=== PATIENT | male | born 1950 | race Caucasian/White ===

== ENCOUNTER → 2018-07-07 | Outpatient (CLI) | payer OTHER ==
[~2018-07-07] MED LIST: ALDACTONE25 MG PO; AUGMENTIN 875875 M1 PO; CARDURA1 MG PO; CARVEDILOL12.5 MG PO; CLARITIN10 MG PO; COUMADIN 10MG T10 M1 PO; COUMADIN 5 MG TA5 M1 PO; COUMADIN7.5 MG; COUMADIN7.5 MG PO; CRESTOR20 MG PO; DIGITEK125 MC1 PO; DIGOXIN250 MCG PO; DOXAZOSIN MESYLA2 MG PO; DOXYCYCLINE 10100 MG PO; FLAGYL500 MG PO; FLONASE 0.05%50 MCG NS; FLOVENT HFA 2220 MC1 IH; LANTUSSOLASTAR SQ; LASIX 40 MG TAB40 M2 PO; LOPRESSOR 50 MG50 M1 PO; LOPRESSOR PO; LOPRESSOR50 PO; LOTENSIN20 MG PO; LOTREL 5-20 MG1 EACH PO; MEDROL DOSPAK21 TA1 PO; MEDROLDOSEPACK PO; NORFLEX100 MG PO; NOVOLOG100 UNIT/1 SUBQ; ONE DAILY FOR1 EACH PO; PROVENTIL17 G1 IH; TRICOR145 MG PO; VICODIN ES TAB1 EACH PO
== END ==
LOC: M.RAD 10:11
DX: R05 Cough (principal); M47.814 Spondylosis without myelopathy or radiculopathy, thoracic region; Z88.8 Allergy status to other drugs, medicaments and biological substances

== ENCOUNTER 2018-07-10 10:58 | Inpatient (IN) | payer OTHER ==
[~2018-07-10] VITALS: Ht 180.3 cm; Wt 142.4 kg
[2018-07-10] VITALS (14 sets, daily range): BP systolic 100–173; BP diastolic 59–139
[2018-07-10 11:18] LABS: POC CA IONIZED 4.5 mg/dL (4.5-5.3); POC CREATININE 1.8 mg/dL (0.6-1.3); POC HEMOGLOBIN 12.2 g/dL (12.0-17.0); POC POTASSIUM 5.7 mmol/L (3.5-4.9)
[2018-07-10 11:19] LABS: HEMATOCRIT 35.6 % (42.0-52.0); HEMOGLOBIN 11.2 gm/dL (14.0-18.0); MCH 30.2 pg (26.0-34.0); MCHC 31.4 g/dL (28.0-37.0); MCV 96.4 fL (80.0-100.0); MPV 9.4 fl. (7.2-11.1); NUCLEATED RBCS 1 /100WBC; PLATELET COUNT* 157 thou/uL (150-400); RDW-CV 14.8 % (10.5-14.5)
[2018-07-10 11:32] LABS: WBC 79.7 thou/uL (4.0-11.0)
[2018-07-10 11:39] LABS: CALCIUM 8.9 mg/dL (8.5-10.1); CREATININE 2.1 mg/dL (0.6-1.3); MAGNESIUM 1.9 mg/dL (1.8-2.4); TOTAL PROTEIN 7.9 g/dL (6.4-8.2)
--- NOTE | 2018-07-10 11:45 | NUR ---
DR BROWN REVIEWED FIRST SET LABS DRAWN. ALL LABS REPEATED PER DR. BROWN.
[2018-07-10 11:51] LABS: POTASSIUM 5.5 mmol/L (3.5-5.1)
[2018-07-10 11:58] LABS: HEMATOCRIT 34.3 % (42.0-52.0); HEMOGLOBIN 10.9 gm/dL (14.0-18.0); MCH 30.3 pg (26.0-34.0); MCHC 31.6 g/dL (28.0-37.0); MCV 95.8 fL (80.0-100.0); MPV 8.5 fl. (7.2-11.1); NUCLEATED RBCS 0 /100WBC; PLATELET COUNT* 123 thou/uL (150-400); RBC 3.58 mil/uL (4.50-6.00); RDW-CV 14.7 % (10.5-14.5)
[2018-07-10 11:59] LABS: BE -5.4 mmol/L (-2 to +3); PCO2 29.3 mmHg (35.0-45.0); PO2 69.5 mmHg (75.0-100.0); pH 7.404 (7.340-7.450)
[2018-07-10 12:01] LABS: WBC 70.9 thou/uL (4.0-11.0)
[2018-07-10 12:03] LABS: ABSOLUTE NEUTROPHILS 8.8 thou/uL (1.6-8.1); MONOCYTES 1.4 %; POLYS 12.4 %
[2018-07-10 12:06] LABS: ABSOLUTE LYMPHOCYTES 73.3 thou/uL (0.8-5.3); ABSOLUTE NEUTROPHILS 6.4 thou/uL (1.6-8.1)
[2018-07-10 12:09] LABS: OVALOCYTES 1+
[2018-07-10 12:10] LABS: MACROCYTES 1+
[2018-07-10 12:11] LABS: SCHISTOCYTES Occasional
[2018-07-10 12:22] LABS: ATYPICAL LYMPHS 87 %
[2018-07-10 12:41] LABS: URINE BILIRUBIN NEGATIVE (Negative); URINE BLOOD 2+ (Negative); URINE CLARITY CLEAR; URINE COLOR YELLOW; URINE GLUCOSE-RANDOM 2+ (Negative); URINE KETONES NEGATIVE (Negative); URINE LEUKOCYTES-REFLEX NEGATIVE (Negative); URINE NITRITE-REFLEX NEGATIVE (Negative); URINE PROTEIN TRACE (Negative); URINE UROBILINOGEN 0.2 E.U./dl (0.2-1.0)
[2018-07-10 12:49] LABS: AMP/METHAMP Negative (Negative); BARBITURATES Negative (Negative); BENZODIAZEPINES Negative (Negative); COCAINE Negative (Negative); METHADONE Negative (Negative); OPIATES Negative (Negative); PCP Negative (Negative); THC Negative (Negative)
[2018-07-10 12:52] LABS: APTT 40.8 Seconds (25.0-31.3); INR 2.9; PROTIME 29.6 Seconds (9.20-11.50)
[2018-07-10 12:57] LABS: HYALINE CASTS >10 Many /LPF (None Seen); MUCUS 0-3 Light strn/LPF (None Seen)
[2018-07-10 12:58] LABS: FINE GRANULAR CASTS 0-3 Few /LPF (None Seen); SQUAMOUS NONE SEEN /LPF (0-3)
[2018-07-10 12:59] LABS: AMORPHOUS URATES Few /LPF (None Seen); BACTERIA-REFLEX 1-9 Few /HPF (None Seen); URINE RBC 3-10 Few /HPF (0-2); URINE WBC-REFLEX 0-5 Rare /HPF (0-5)
[2018-07-10 13:10] LABS: INFLUENZA A ANTIGEN None Detected (None Detect); INFLUENZA B ANTIGEN None Detected (None Detect)
[2018-07-10 16:44] LABS: CALCIUM 7.3 mg/dL (8.5-10.1); CREATININE 1.7 mg/dL (0.6-1.3); PHOSPHORUS* 2.8 mg/dL (2.5-4.9); URIC ACID* 6.4 mg/dL (2.6-7.2)
[2018-07-10 16:45] LABS: POTASSIUM 4.3 mmol/L (3.5-5.1)
--- NOTE | 2018-07-10 16:45 | EKG ---
[place] [address] ELECTROCARDIOGRAM REPORT Name: CASTROJER YG Room: [address] ADM IN M.R.#: [id number] Admission: 07/10/18 Attend Phys: Alyssa Worthy Discharge: Date of : 52 Report #: [id number] THIS REPORT FOR: //name// [facility] ED Test Date: 2018-07-10 Test Time: 11:42:38 Pat Name: JER CASTRO Department: Room: [facility] Gender: M Link Assembler: ANNETTA : 1950 Requested By: Floridalma Guevara Order Number: [id number] MD: Chan Mcfarland Measurements Intervals Clark Rate: 96 P: 70 TN: 175 QRS: -11 QRSD: 125 T: 16 QT: 355 QTc: 449 Interpretive Statements Sinus rhythm Nonspecific intraventricular conduction delay Inferior infarct, old Compared to ECG 08/04/2010 08:06:25 Myocardial infarct finding still present Electronically Signed On 07-10-2018 16:45:18 CDT by Chan Mcfarland [email or web address] <ELECTRONICALLY SIGNED> By: Chan Mcfarland MD, [facility] 07/10/18 1645 1142 1142 Chan Mcfarland MD, [facility] /EPI
--- NOTE | 2018-07-10 16:56 | 2DMMODE ---
[place] [address] 2 D/M-MODE ECHOCARDIOGRAM Name: CASTROJER RONQUILLO Room: [address] IN [facility]#: [id number] Admission: 07/10/18 Attend Phys: Shantell Brown Discharge: Date of : 52 Date of Service: 07/10/18 1656 Report #: [id number] THIS REPORT FOR: //name// APPROVED REPORT Study performed: 07/10/2018 16:18:11 EXAM: Limited 2D, Doppler, and color-flow Echocardiogram Patient Location: In-Patient Room #: 003 Status: routine BSA: 2.51 HR: 86 bpm BP: 173/77 mmHg Rhythm: NSR Other Information Study Quality: Adequate Technically limited study due to body habitus, no apical views available. Indications Congestive Heart Failure Sepsis Respiratory distress 2D Dimensions IVSd: 14.02 (7-11mm) LVOT Diam: 24.28 (18-24mm) LVDd: 62.30 mm PWd: 10.86 (7-11mm) Ascending Ao: 42.09 (22-36mm) LVDs: 44.28 (25-40mm) Aortic Root: 42.63 mm Aortic Valve AoV Peak Joel.: 3.61 m/s AO Peak Gr.: 52.12 mmHg LVOT Max P.09 mmHg AO Mean Gr.: 29.35 mmHg LVOT Mean P.17 mmHg LVOT Max V: 1.01 m/s AO V2 VTI: 64.52 cm LVOT Mean V: 0.68 m/s ERIN (VTI): 1.53 cm2 LVOT V1 VTI: 21.36 cm Pulmonary Valve PV Peak Joel.: 1.39 m/s PV Peak Gr.: 7.77 mmHg Left Ventricle The left ventricle is normal size. There is global [place] [address] 2 D/M-MODE ECHOCARDIOGRAM Name: GLORIAJER RONQUILLO Room: [address] ADM IN .R.#: [id number] Admission: 07/10/18 Attend Phys: Shantell Brown Discharge: Date of : 52 Date of Service: 07/10/18 1656 Report #: [id number] left ventricle. Mild septal hypertrophy is present. Left ventricular systolic function is moderately decreased. The left ventricular diastolic function is normal. Right Ventricle The right ventricle is normal size. The right ventricular systolic function is normal. Atria The left atrium size is normal. The right atrium size is normal. Aortic Valve Moderate aortic valve sclerosis. No aortic regurgitation is present. Moderate aortic stenosis. Mitral Valve The mitral valve is normal in structure. There is no mitral valve regurgitation noted. No evidence of mitral valve stenosis. Tricuspid Valve Tricuspid valve is not well visualized. Unable to assess PA pressure. Trace tricuspid regurgitation. Pulmonic Valve Pulmonic valve is not well visualized. Trace pulmonic regurgitation. Great Vessels Aortic root is mildly dilated. IVC is normal in size. Pericardium There is no pericardial effusion. <Conclusion> Left ventricular systolic function is moderately decreased. Moderate aortic stenosis. <ELECTRONICALLY SIGNED> By: Chan Mcfarland MD, [facility] 07/10/18 [phone] 55 Chan Mcfarland MD, [facility] /INF
--- NOTE | 2018-07-10 18:19 | NUR ---
07/10 DAYS: New admit from ED. Moderate respiratory distress, placed on Bi-pap with improvement (RR drop from 40's to 20's). HTN, now soft b/p while resting on Bi-pap. ECHO, Renal US completed at bedside. Febrile, tylenol suppositoryx1 Neurologic, unable to follow commands, lethargic, spastic. HemOnc and Neuro consults placed. Monitoring closely at this time.
[2018-07-10 23:07] LABS: GLYCOHEMOGLOBIN (HGB A1C) 8.5 % (4.8-5.6)
[2018-07-11] VITALS (11 sets, daily range): BP systolic 100–149; BP diastolic 53–87
[2018-07-11 04:19] LABS: HEMATOCRIT 29.1 % (42.0-52.0); HEMOGLOBIN 9.3 gm/dL (14.0-18.0); MCH 30.5 pg (26.0-34.0); MCHC 32.1 g/dL (28.0-37.0); MCV 95.1 fL (80.0-100.0); MPV 8.6 fl. (7.2-11.1); RBC 3.06 mil/uL (4.50-6.00); RDW-CV 15.2 % (10.5-14.5)
[2018-07-11 04:40] LABS: WBC 64.3 thou/uL (4.0-11.0)
[2018-07-11 04:46] LABS: ALBUMIN 2.7 g/dL (3.4-5.0); CALCIUM 7.6 mg/dL (8.5-10.1); CREATININE 1.9 mg/dL (0.6-1.3); MAGNESIUM 1.9 mg/dL (1.8-2.4); POTASSIUM 4.3 mmol/L (3.5-5.1); TOTAL BILIRUBIN 0.8 mg/dL (<0.1-1.0); TOTAL PROTEIN 5.7 g/dL (6.4-8.2)
[2018-07-11 05:16] LABS: PCO2 42.1 mmHg (35.0-45.0); pH 7.347 (7.340-7.450)
[2018-07-11 05:19] LABS: PO2 35.7 mmHg (75.0-100.0)
[2018-07-11 06:14] LABS: BE -3.9 mmol/L (-2 to +3); PCO2 38.2 mmHg (35.0-45.0); PO2 113.8 mmHg (75.0-100.0); pH 7.357 (7.340-7.450)
--- NOTE | 2018-07-11 06:42 | NUR ---
PATIENT SLEEPING THROUGH MOST OF THE NIGHT. TYLENOL X2 FOR FEVER, HYDRALAZINE FOR BP. PATIENT ON BIPAP THROUGH THE NIGHT, ABG THIS AM TRENDING TOWARDS GOAL. SEIZURE-LIKE ACTIVITY SHIVERS NOTED, KEPPRA EEG ORDERED. PATIENT STARTED RESPONDING HE WAS HAVING THE SEIZURE-LIKE ACTIVITY, NO CHANGE IN HEART RHYTHM, LET PROVIDER KNOW HE MIGHT JUST BE SHIVERING. ORDERS STAND. PATIENT LETHARGIC, UNABLE TO HAVE A CONVERSATION AT THE BEGINNING OF SHIFT. PATIENT ALERT AND ORIENTED X4 THIS AM, TEMP DOWN TO 99.9F. 1000 CC UOP. INCLUSION SPECIAL EDUCATOR ASKS FOR NAME OF ONCOLOGIST, CONTACTED. ONCOLOGIST IS CESAR FREEDMAN WITH [employer], PHONE NUMBER [phone]. CALL LIGHT WITHIN REACH. Q2 TURNS FOR SKIN INTEGRITY.
--- NOTE | 2018-07-11 18:19 | NUR ---
PATIENT SHOWS PROGRESSION THROUGH DURATION OF SHIFT. PATIENT REMOVED FROM BIPAP AND IS NOW ON 2L O2 NASAL CANNULA MAINTAINS SATURATION. PATIENT UP TO CHAIR TODAY, TOLERATED WELL. PATIENT ON CARB CONTROL DIET, POOR APPETITE. PATIENT IS CURRENTLY IN BED, WHEELS LOCKED AND BED IN LOW POSITION FOR SAFETY. CALL LIGHT IS IN REACH.
--- NOTE | 2018-07-12 04:17 | CON ---
[address] [address] CONSULTATION Name: GLORIAJER RONQUILLO Room: [address] ADM IN M.R.#: [id number] Admission: 07/10/18 Attend Phys: Alyssa Worthy Discharge: Date of : 52 Report #: [id number] THIS REPORT FOR: //name// CC: Chan Brown HISTORY OF PRESENT ILLNESS: A 67-year-old white man admitted through the emergency room with a history of confusion, recent episode of influenza and uncontrolled diabetes mellitus. The patient in the ICU, on BiPAP. He is arousable. He is not even able to tell me why he is here. Upon further questioning, he tells me he had the flu. Nurse confirms the patient may have positive influenza test at physician's office and here is the test is negative. PAST MEDICAL HISTORY: Coronary artery bypass grafting years ago, diabetes mellitus. Chronic lymphocytic leukemia, apparently not on treatment. Hypertension. He has history of blood clots. SOCIAL HISTORY: See H and P. FAMILY HISTORY: See H and P. REVIEW OF SYSTEMS: Unable to obtain. MEDICATIONS: The patient is currently on treatment with levetiracetam 500 mg IV b.i.d., Atrovent and albuterol inhalation treatment every 4 hours, hydralazine 20 mg IV p.r.n., every 4 hours, labetalol 20 mg q. 4h p.r.n. hypertension, Zosyn 3.375 grams IV every 12 hours, insulin lispro sliding scale, p.r.n. acetaminophen, p.r.n. glucose, Glucagon, normal saline intravenously. PHYSICAL EXAMINATION: GENERAL: Obese man, not toxic looking, unable to give clear history, febrile. VITAL SIGNS: On admission, temperature 103.6, slowly down to 102.2, now 100.9, pulse 65, respirations 22, BP 108/57, height 5 feet 11 inches, weight 300 pounds, O2 saturation 99% on FiO2 40% BiPAP. HEENT: Pupils reactive, question left eye cataract surgery in the past, but he does not confirm this. Mouth: No thrush. NECK: Supple. LUNGS: Decreased breath sounds, few rhonchi at left base posteriorly. HEART: S1, S2. No gallop or murmur. Sternal surgical scars of previous CABG. ABDOMEN: Revealed fatty hyperplasia of both lower abdominal quadrants from insulin injections. No evidence of hernia. ABDOMEN: Soft, no masses or megaly. PELVIC AND RECTAL: Deferred. EXTREMITIES: Stasis dermatitis, hyperpigmentation. NEUROLOGIC: Grossly within normal limits. LABORATORY DATA: Revealed hyperkalemia of 5.7. Repeated, [place] [address] CONSULTATION Name: JER CASTRO Room: [address] IN .R.#: [id number] Admission: 07/10/18 Attend Phys: Alyssa Worthy Discharge: Date of : 52 Report #: [id number] down to 4.3. BUN 33, creatinine 2.1, down to 1.7 after hydration. Glucose 321, SGOT normal, calcium low at 7.3 mg/dL, possibly reflecting hypoalbuminemia, admission albumin 4 g/dL. Lactic acid 2.6 and down to 1.2 after fluids. NT-proBNP 1308, hemoglobin A1c 8.5%, revealing uncontrolled diabetes mellitus. The toxicology screen negative. Influenza A and B test negative. WBC 70,900 with 86% lymphocytes, compatible with chronic lymphocytic leukemia, hemoglobin 10.9, platelets decreased at 123,000. The upper respiratory virus panel is pending at the time of this dictation. The urinalysis revealed trace protein, 2+ blood. The microscopic exam revealed microscopic hematuria, bacteriuria and some mucus. The arterial blood gases reveal pH 7.40, pCO2 29.3, which is low, pO2 69, also low and bicarbonate low at 17.9, representing metabolic acidosis with respiratory alkalosis - compensated. The urine for Streptococcus pneumoniae and Legionella antigen is pending. Blood cultures negative. RADIOLOGY EVALUATION: CT head without contrast revealed chronic microvascular disease and maxillary sinusitis that appears chronic. Chest x-ray revealed left basilar pulmonary infiltrate, effusion. Ultrasound venous legs negative for DVT. ASSESSMENT: 1. Febrile illness, possible secondary to left lower lobe pneumonia. 2. Immunosuppressed host. 3. Chronic lymphocytic leukemia. 4. Uncontrolled diabetes mellitus. 5. Chronic kidney disease, improving. 6. History of coronary artery bypass grafting. SUGGESTIONS: Recommend obtaining MRSA screen, ESR and CRP. At Zyvox 600 mg IV every 12 hours. Continue Zosyn. Streamline antibiotics once microbiology sheds some light into what might be causing his pneumonia. Dr. Brown, thank you for requesting my suggestion. <ELECTRONICALLY SIGNED> By: Ad Aponte MD 07/12/18 0417 0436 [id number] Aponte MD /nt
--- NOTE | 2018-07-12 05:54 | NUR ---
PATIENT TRANSFERED TO ROOM 305 ON BED ACCOMPANIED BY GUSTAVO LAW AT THIS TIME. REPORT GIVEN TO GUSTAVO MORALEZ FOR CONTINUED CARE. VITALS WNL, PATIENT ALERT AND ORIENTED X3. BELONGINGS WITH PATIENT. NO CONCERNS/COMPLAINTS AT THIS TIME.
[2018-07-12 06:20] VITALS: BP 134/66
--- NOTE | 2018-07-12 07:54 | NUR ---
PT TRANSFERED TO ROOM 307, REPORT RECIEVED FROM KAT RN IN ICU. PT ORIENTED TO ROOM, CALL LIGHT SHOWN, PT STATED UNDERSTANDING. ASSESSMENT FROM PAINT TINTER REVIEWED, I CONCUR WITH HER DOCUMENTATION. IV'S PATENT. TELE MONITOR IN PLACE READING SR- A-FIB. WILL CONTINUE WITH PLAN OF CARE.
[2018-07-12 08:10] VITALS: BP 148/72
--- NOTE | 2018-07-12 11:18 | CON ---
[address] [address] CONSULTATION Name: GLORIAJER SARKARY Room: [address] IN M.R.#: [id number] Admission: 07/10/18 Attend Phys: Alyssa Worthy Discharge: Date of : 52 Report #: [id number] THIS REPORT FOR: //name// CC: Chan Brown NEUROLOGY CONSULTATION: HISTORY OF PRESENT ILLNESS: The patient is a 67-year-old male who was brought to the hospital for altered mental status. The patient tells me that he gave himself too much insulin. He states that he just over shot it. When he woke up at 7:30 the morning of admission, his blood sugar was 60. He ate a piece of birthday cake, by 8:30 in the morning when EMS arrived, he was in an altered state and his blood sugar was 320. The Emergency Room was able to contact Dr. Hernandez's nurse, he had been seen in the office 2 days prior and was completely normal. Apparently, the patient also tested positive for influenza last weekend and had a negative chest x-ray 2 days ago. This morning, the patient is able to carry on a conversation, although he is tired. He states he has never had a seizure before and was mostly unaware of the events that occurred yesterday. I spoke with his nurse and she states that he has had some twitching of his extremities, but nothing that would be considered a seizure. The day of admission, the patient had one event, which was concerning for seizure and then had another event of tremulousness of the extremities, which was not consistent with a seizure. PAST MEDICAL HISTORY: Hypertension, hyperlipidemia, myocardial infarction x 2, coronary artery disease, diabetes mellitus. PAST SURGICAL HISTORY: Appendectomy, coronary artery bypass graft x 6. MEDICATIONS AT HOME: Metoprolol 50 mg b.i.d., doxazosin 2 mg b.i.d., Crestor 20 mg at bedtime, NovoLog insulin, Lantus 60 units at bedtime, Lotensin 20 mg b.i.d., warfarin 10 mg 6 times a week, spironolactone 25 mg daily. ALLERGIES: NIFEDIPINE. PHYSICAL EXAMINATION: VITAL SIGNS: Temperature 37.7, pulse rate 63, respiratory rate 26, blood pressure 119/65, bedside pulse oximetry 100% on 4 liters. LABORATORY DATA: Hematology: White blood cell count 64.3, hemoglobin 9.3, hematocrit 29.1, MCV 95.1, platelet count 101,000. INR 2.9. Urinalysis, trace protein, 2+ blood, 2+ glucose. Chemistry: Sodium 143, potassium 4.3, chloride 111, carbon dioxide 22, BUN 35, creatinine 1.9, GFR 26. Hemoglobin A1c 8.5. Lactic acid 1.2, uric acid 6.4, calcium 7.6, phosphorus 2.8, magnesium 1.9. Bilirubin 0.8, AST 40, ALT 14, alkaline phosphatase 66. Serology: [place] [address] CONSULTATION Name: GLORIAJER YG Room: [address] IN [facility]#: [id number] Admission: 07/10/18 Attend Phys: Alyssa Worthy Discharge: Date of : 52 Report #: [id number] screen negative. IMAGING: CT scan of the head demonstrates atrophy and small vessel ischemic disease. NEUROLOGIC: Cranial nerves 2-12 are grossly intact. Motor exam demonstrates symmetrical strength in all 4 extremities with tone and bulk normal. Reflexes are trace. Plantar responses are flexor. Coordination reveals intact [id number]. Gait was not tested. IMPRESSION: This patient has had altered mental status, most likely secondary to hypoglycemia and then hyperglycemia. He had an episode of jerking of the extremities, which was concerning for seizure. However, he has also had other episodes of jerking of the extremities and has been awake. He is on Keppra 500 mg twice a day; however, I am going to discontinue the medication. The electroencephalogram shows generalized slowing, which is consistent with his mental status at this moment. I suspect that he will continue to improve with regard to his mentation over time. I thank you for your kind referral of the patient and will continue to follow him with you. <ELECTRONICALLY SIGNED> By: Linda Hatch DO 07/12/18 1118 [id number] Hatch DO /nt
--- NOTE | 2018-07-12 11:18 | EEG ---
[address] [address] EEG STUDY REPORT Name: JER CASTRO Room: [address] IN M.R.#: [id number] Admission: 07/10/18 Attend Phys: Alyssa Worthy Discharge: Date of : 52 Report #: [id number] THIS REPORT FOR: //name// CC: Chan Brown HISTORY: The patient is a 67-year-old male with several episodes of jerking of the extremities. An EEG is requested for further evaluation. DESCRIPTION: Using the 10-20 electrode system, a portable EEG was performed at the bedside. A moderate amplitude 5-6 Hz rhythm is seen throughout the recording. At times, low amplitude 20-25 cycles per second activity is seen over the frontocentral head regions. Photic stimulation was not activating. No focal abnormalities or epileptiform discharges were noted. IMPRESSION: This is an abnormal adult awake record consistent with moderate diffuse cerebral dysfunction. This is a nonspecific finding. There is no evidence of focal abnormality or epileptiform activity. <ELECTRONICALLY SIGNED> By: Linda Hatch DO 07/12/18 1118 1124 [id number] Hatch DO /nt
[2018-07-12 12:00] VITALS: BP 176/55
[2018-07-12 15:00] VITALS: BP 113/70
[2018-07-12 15:30] LABS: HEMOGLOBIN 9.4 gm/dL (14.0-18.0); MCH 30.9 pg (26.0-34.0); MCHC 31.5 g/dL (28.0-37.0); MCV 98.1 fL (80.0-100.0); NUCLEATED RBCS 0 /100WBC; PLATELET COUNT* 112 thou/uL (150-400); RBC 3.06 mil/uL (4.50-6.00); RDW-CV 15.8 % (10.5-14.5)
[2018-07-12 15:38] LABS: ALBUMIN 2.8 g/dL (3.4-5.0); CREATININE 1.9 mg/dL (0.6-1.3); MAGNESIUM 2.2 mg/dL (1.8-2.4); POTASSIUM 4.6 mmol/L (3.5-5.1); TOTAL BILIRUBIN 0.4 mg/dL (<0.1-1.0); TOTAL PROTEIN 5.5 g/dL (6.4-8.2)
[2018-07-12 16:34] LABS: ABSOLUTE LYMPHOCYTES 59.6 thou/uL (0.8-5.3); ABSOLUTE MONOCYTES 1.4 thou/uL (0.0-1.2); ABSOLUTE NEUTROPHILS 9.9 thou/uL (1.6-8.1)
[2018-07-12 16:35] LABS: ANISOCYTOSIS Occasional; PLATELET ESTIMATE DECREASED
[2018-07-12 16:36] LABS: BURR CELLS 1+
--- NOTE | 2018-07-12 17:07 | NUR ---
PATIENT CURRIE DC'D THIS AM, VOIDING WITHOUT DIFFICULTY. UP TO CHAIR ALL AFTERNOON. AMBULATING WITH ASSISTANCE AROUND ROOM WITHOUT DIFFICULTY. INSULIN GIVEN WITH MEALS WHEN REQUIRED. NO COMPLAINTS OF PAIN. DR. RUSSELL NOTIFIED OF CRITICAL WBC THIS AFTERNOON. SCHED IV ABX REMAIN.
[2018-07-12 19:40] VITALS: BP 151/71
[2018-07-13 00:54] VITALS: BP 134/72
[2018-07-13 04:33] VITALS: BP 122/76
--- NOTE | 2018-07-13 05:20 | NUR ---
PT SLEPT ON AND OFF THIS SHIFT. ASSESSMENT DOCUMENTED. MEDS GIVEN PER E-JUN. NO REPORTS OF PAIN THIS SHIFT. PT DID REPORT NAUSEA, PT STATED THAT THE FOOD HE GOT FOR DINNER WAS "ROTTEN". DR NOTIFIED, ORDERS RECIEVED, ZOFRAN GIVEN WITH RELIEF. IV'S PATENT. WILL CONTINUE WITH PLAN OF CARE.
[2018-07-13 08:50] VITALS: BP 161/62
[2018-07-13 11:57] VITALS: BP 140/75
--- NOTE | 2018-07-13 13:42 | NUR ---
Nutrition: Pt seen for high BMI. CHO controlled diet, eating well. He did stated he doesn't want tea or coffee ever - RD put in that order. BG 187, alb 2.8, prealb 14.7. He stated his BG runs 120-130 at home. Hx DM, HTN, PNA. Wt: 314#. Pt denied any other needs. Appears at mild nutrition risk.
[2018-07-13 16:20] VITALS: BP 117/67
--- NOTE | 2018-07-13 16:32 | NUR ---
SW met with pt to complete initial assessment, introduce self, and SW role. Pt alert, oriented. Pt lives at home with his . Pt said he felt more steady on his feet today and took a shower. Pt does not anticipate any dc needs at this time. SW to continue to follow.
--- NOTE | 2018-07-13 18:59 | NUR ---
PATIENT HAS BEEN A/O X 4 THIS SHIFT. CONTINUES ON GAS METER INSTALLER HELPER, TRACING NSR. UP IN HALLS THIS SHIFT AND IN ROOM. PATIENT CONTINUES ON IV ANTIBIOTICS. BLOOD SUGARS CHARTED. REMAINS ON RA. HOPEFUL TO BE DISCHARGED SOON. HOURLY ROUNDING COMPLETED. CALL LIGHT WITHIN REACH. WILL CONTINUE WITH PLAN OF CARE.
[2018-07-13 20:30] VITALS: BP 141/57
[2018-07-14 00:30] VITALS: BP 139/71
[2018-07-14 03:52] VITALS: BP 159/64
[2018-07-14 04:36] LABS: HEMATOCRIT 30.9 % (42.0-52.0); HEMOGLOBIN 9.8 gm/dL (14.0-18.0); MCH 30.6 pg (26.0-34.0); MCHC 31.9 g/dL (28.0-37.0); MCV 95.9 fL (80.0-100.0); MPV 8.3 fl. (7.2-11.1); RBC 3.22 mil/uL (4.50-6.00)
[2018-07-14 04:49] LABS: CALCIUM 8.6 mg/dL (8.5-10.1); MAGNESIUM 1.8 mg/dL (1.8-2.4); POTASSIUM 4.3 mmol/L (3.5-5.1)
--- NOTE | 2018-07-14 06:12 | NUR ---
PATIENT SLEPT PART OF THE NIGHT. IV REMAINS SALINE LOCKED. IV ABTIBIOTICS WERE GIVEN ORDERED. PATIENT HAD NO COMPLAINTS OF PAIN. PATIENT IS HOPING TO GO HOME TODAY. WILL CONTINUE TO MONITOR.
--- NOTE | 2018-07-14 06:59 | CON ---
[address] [address] CONSULTATION Name: CASTROJER RONQUILLO Room: [address] IN .R.#: [id number] Admission: 07/10/18 Attend Phys: Alyssa Worthy Discharge: Date of : 52 Report #: [id number] THIS REPORT FOR: //name// CC: Chan Brown DATE OF SERVICE: 07/12/2018 REASON FOR CONSULTATION: CLL REQUESTING PHYSICIAN: Dr. Brown. HISTORY OF PRESENT ILLNESS: The patient is a 67-year-old man with history of chronic lymphocytic leukemia, well known to my partner, Dr. Higuera. He has not required treatment so far for CLL. He was admitted to the hospital with altered mental status. He was initially admitted to Intensive Care Unit with hypoxia, possible pneumonia. He ____ and he was transferred to the telemetry floor. Oncology consultation is requested because of elevated white count. He ____ in his bed today. He is alert, oriented. He is doing well. He does not have complaints of any fevers or chills. He has not lost any weight. He has not been having profuse night sweats. No bleeding. PAST MEDICAL HISTORY: Significant for diabetes mellitus, coronary artery disease, hypertension, CLL. SOCIAL HISTORY: Does not smoke. REVIEW OF SYSTEMS: See above. PHYSICAL EXAMINATION: GENERAL: Reveals overweight man, not in acute distress. VITAL SIGNS: Blood pressure 176/55, heart rate is 71, temperature 98.9, respirations 18. HEENT: Does not reveal thrush. NECK: Supple. There is no cervical lymphadenopathy. HEART: Normal S1, S2. LUNGS: Clear. ABDOMEN: Obese. SKIN: No rash. MENTAL STATUS: Alert, oriented x 3. LABORATORY DATA: White count 64.3, hemoglobin 9.3, platelets 101. Absolute neutrophil count checked on 07/10/2018 was 73.3 with total white count of 79.7. ASSESSMENT AND PLAN: CLL. No indications for any treatment for now. I do not think ____ the patient's condition, continue [place] [address] CONSULTATION Name: JER CASTRO Room: [address] IN [facility]#: [id number] Admission: 07/10/18 Attend Phys: Alyssa Worthy Discharge: Date of : 52 Report #: [id number] infection ____ treatment. Follow up with Dr. Higuera in 1 month. Thank you very much for allowing me to participate in the care of this patient. <ELECTRONICALLY SIGNED> By: Rip Sinclair MD 07/14/18 0659 1337 [id number] Sinclair MD /nt
[2018-07-14 07:45] VITALS: BP 162/88
[2018-07-14 12:04] VITALS: BP 162/88
[2018-07-14] MEDS ORDERED: LEVAQUIN 750 M750 MG PO (12:17)
[2018-07-14 13:56] VITALS: BP 167/82
[2018-07-14] MEDS ORDERED: LEVAQUIN 500 M500 M2 PO (14:06)
--- NOTE | 2018-07-14 14:51 | NUR ---
PATIENT'S IV AND OFFICER CAPTAIN REMOVED. PATIENT GIVEN DISHCARGE INSTRUCTIONS AND PRESCRIPTIONS. PATIENT VERBALIZED UNDERSTANDING IN REGARDS TO FOLLOW UP APPOINTMENTS AND NEW MEDICATIONS. PATIENT DISCHARGED WITH NURSING STAFF AND AMBULATED OFF UNIT WITH PATIENT'S BROTHER.
[2018-07-15 06:05] LABS: ADENOVIRUS Negative (Negative); INFLUENZA A Negative (Negative); INFLUENZA B Negative (Negative); METAPNEUMOVIRUS Negative (Negative); PARAINFLUENZA 1 Negative (Negative); PARAINFLUENZA 2 Negative (Negative); PARAINFLUENZA 3 Negative (Negative); RHINOVIRUS Negative (Negative); RSV A Negative (Negative); RSV B Negative (Negative)
== END 2018-07-14 14:40 | disposition home or self-care (01) | DRG 871 ==
LOC: M.ERS 10:58 → M.3W 12:12 → M.TBA-ER 12:12 → M.ICU 14:30 → M.3W 07-12 05:58
PROVIDERS: Internal Medicine; Personal Emergency Response Attendant; ADMIT Internal Medicine
PROC: 5A09357 Assistance with Respiratory Ventilation, Less than 24 Consecutive Hours, Continuous Positive Airway Pressure (ICD-10-PCS; principal; 2018-07-10)
DX: A41.9 Sepsis, unspecified organism (principal); J15.6 Pneumonia due to other Gram-negative bacteria; G93.41 Metabolic encephalopathy; N17.0 Acute kidney failure with tubular necrosis; J15.9 Unspecified bacterial pneumonia; C91.10 Chronic lymphocytic leukemia of B-cell type not having achieved remission; D68.59 Other primary thrombophilia; I12.9 Hypertensive chronic kidney disease with stage 1 through stage 4 chronic kidney disease, or unspecified chronic kidney disease; N18.3 Chronic kidney disease, stage 3 (moderate); E78.00 Pure hypercholesterolemia, unspecified; E10.65 Type 1 diabetes mellitus with hyperglycemia; E78.5 Hyperlipidemia, unspecified; E10.22 Type 1 diabetes mellitus with diabetic chronic kidney disease; I25.10 Atherosclerotic heart disease of native coronary artery without angina pectoris; G93.89 Other specified disorders of brain; I35.0 Nonrheumatic aortic (valve) stenosis; I25.2 Old myocardial infarction; Z95.1 Presence of aortocoronary bypass graft; Z95.5 Presence of coronary angioplasty implant and graft; Z83.3 Family history of diabetes mellitus; Z88.8 Allergy status to other drugs, medicaments and biological substances; Z90.49 Acquired absence of other specified parts of digestive tract; Z79.01 Long term (current) use of anticoagulants; Z79.899 Other long term (current) drug therapy

== ENCOUNTER → 2018-11-17 | Outpatient (CLI) | payer OTHER ==
[~2018-11-17] MED LIST changes: +LEVAQUIN 500 M500 M2 PO; +LEVAQUIN 750 M750 MG PO
[2018-11-17 09:38] LABS: CALCIUM 9.1 mg/dL (8.5-10.1); CREATININE 1.7 mg/dL (0.6-1.3); POTASSIUM 4.3 mmol/L (3.5-5.1)
[2018-11-17 09:50] LABS: ALBUMIN 4.1 g/dL (3.4-5.0); TOTAL BILIRUBIN 0.8 mg/dL (<0.1-1.0); TOTAL PROTEIN 6.9 g/dL (6.4-8.2)
== END ==
LOC: M.LAB 09:15 → M.CT 11:00
PROVIDERS: Internal Medicine Hematology & Oncology
DX: J84.10 Pulmonary fibrosis, unspecified (principal); M25.70 Osteophyte, unspecified joint; M47.814 Spondylosis without myelopathy or radiculopathy, thoracic region; E01.0 Iodine-deficiency related diffuse (endemic) goiter; R60.9 Edema, unspecified; C91.90 Lymphoid leukemia, unspecified not having achieved remission

== ENCOUNTER → 2018-11-25 | Outpatient (CLI) | payer OTHER ==
[~2018-11-25] VITALS: Ht 190.5 cm; Wt 132.4 kg
[2018-11-25 08:58] VITALS: BP 131/68
[2018-11-25 09:06] LABS: HEMATOCRIT 34.6 % (42.0-52.0); HEMOGLOBIN 11.2 gm/dL (14.0-18.0); MCHC 32.3 g/dL (28.0-37.0); MCV 96.2 fL (80.0-100.0); MPV 8.1 fl. (7.2-11.1); NUCLEATED RBCS 0 /100WBC; PLATELET COUNT* 107 thou/uL (150-400); RDW-CV 15.2 % (10.5-14.5)
[2018-11-25 09:08] LABS: WBC 86.7 thou/uL (4.0-11.0)
[2018-11-25 09:12] LABS: CREATININE 1.7 mg/dL (0.6-1.3)
[2018-11-25 09:16] LABS: INR 1.1; PROTIME 11.6 Seconds (9.20-11.50)
[2018-11-25 09:25] LABS: ABSOLUTE LYMPHOCYTES 84.1 thou/uL (0.8-5.3); ABSOLUTE NEUTROPHILS 2.6 thou/uL (1.6-8.1); ATYPICAL LYMPHS 5 %
[2018-11-25 09:26] LABS: PLATELET ESTIMATE DECREASED
[2018-11-25 11:00] VITALS: BP 165/75
--- NOTE | 2018-12-02 21:05 | PATH ---
[address] [address] PATHOLOGY RPT PROCEDURE Name: GLORIABALJIT RONQUILLO Room: [facility].#: [id number] Admission: 11/25/18 Date of : 52 Discharge: Report #: [id number] Path Case #: [id number] [facility] Accession Number: [id number] . 01 Material submitted: . PART A: bone - BONE MARROW BIOPSY PART B: bone - BONE MARROW CLOT PART C: bone - BONE MARROW ASPIRATES PART D: bone - PERIPHERAL SMEARS PART E: bone - BONE MARROW FLOW . 01 Clinical history: . 58-year-old man with CLL. . 02 Diagnosis: Bone marrow aspirate, biopsy, cell clot and peripheral blood: - PERIPHERAL BLOOD WITH CHRONIC LYMPHOCYTIC LEUKEMIA/SMALL LYMPHOCYTIC LYMPHOMA. - HYPERCELLULAR BONE MARROW WITH DIFFUSE INVOLVEMENT BY CHRONIC LYMPHOCYTIC LEUKEMIA/SMALL LYMPHOCYTIC LYMPHOMA (APPROXIMATELY 90% INVOLVEMENT BY IMMUNOHISTOCHEMICAL STAINING). . . Surgical Pathology Cancer Case Summary Protocol posting date: May 2018 . BONE MARROW: Final Integrated Diagnosis . Final Integrated Diagnosis . Mature B-cell neoplasms ___ Chronic lymphocytic leukemia/small lymphocytic lymphoma . Surgical Pathology Cancer Case Summary . Protocol posting date: May 2018 . BONE MARROW: Histologic Assessment . Clinical . Clinical context ___ Other: Unknown . Procedure ___ Bone marrow aspiration ___ Bone marrow aspirate clot ___ Bone marrow core biopsy ___ Bone marrow core touch preparation (imprint) [place] [address] PATHOLOGY RPT PROCEDURE Name: BALJIT SINGH Room: [facility]#: [id number] Admission: 11/25/18 Date of : 52 Discharge: Report #: [id number] Path Case #: [id number] . Peripheral Blood Complete Blood Cell Count White blood cell count: 86.7 x103 / 5L Neutrophils: 3% Lymphocytes: 92% Other cells: 5% Cell type): Atypical lymph Hemoglobin: 11.2 g/dL Platelets: 107 x103 / 5L . Bone Marrow Morphology . Bone Marrow Cellularity: 80-90% . Bone Marrow Blasts: less than 1% . Bone Marrow Lymphocytes (report for lymphoid malignancies): 90% . Histologic Group ___ Mature B-cell neoplasm . Biomarker Studies ___ Pending . (CLW:pit; 11/27/2018) . Special studies report received from [facility], [address] [place] [address], [address], [place], [address], on case [id number], labeled with their number [id number], dated 11/26/2018. . Flow Cytometry: Hematologic Neoplasia Assessment . Clinical History CLL . Indication for Study Evaluation for chronic lymphocytic leukemia . Specimen Bone Marrow Aspirate . Viability 94% (7AAD exclusion) . Interpretation Bone Marrow Aspirate: CD5+ monotypic (clonal) B-cell population (92% of leukocytes) with a B-cell chronic lymphocytic leukemia/small lymphocytic lymphoma (CLL/SLL[place] [address] PATHOLOGY RPT PROCEDURE Name: BALJIT SINGH Room: [facility]#: [id number] Admission: 11/25/18 Date of : 52 Discharge: Report #: [id number] Path Case #: [id number] . Comments Correlation with available clinical, laboratory, and morphologic data is recommended. . Populations Analyzed Myeloid Blasts: 0.0% No significant blast population detected . Abnormal B-cells: 92% Scatter properties compatible with small to intermediate cell size, cells characterized as: CD45+, CD5+, CD10-, CD11b-, CD11c-/+, CD19+, CD20+ (dim), CD22+ (dim), CD23+, CD38-, FMC7-, HLA-DR+, sIg kappa+ . Remaining 1.8% B-cells: 0.05%, polytypic/polyclonal sIg light chain Lymphocytes: pattern T-cells: no significant abnormalities of the markers tested CD4+ T-cells: 0.8% (including 0.0% CD57+ cells) CD8+ T-cells: 0.4% (including 0.1% CD57+ cells) CD4:CD8: 1.9 NK cells: 0.5% . Neutrophilic Cells: 6% No significant abnormalities of the markers tested . Monocytic Cells: 0.3% No significant abnormalities of the markers tested . Eosinophils: 0.2% No relative increase . . Morphologic Evaluation A slide was reviewed for quality officer purposes only. . Specimen Description Total Cell Yield: 63.30 X 10 6 . Reagent(s) Used CD2, CD3, CD4, CD5, CD7, CD8, CD10, CD11b, CD11c, CD13, CD14, CD16, CD19, CD20, CD22, CD23, CD33, CD34, CD38, CD45, CD56, CD57, CD64, CD117, FMC-7, HLA-DR, kappa, lambda . at [facility]. Donell Casarez MD Hematopathologist . . Intended Use Flow cytometry is optimally used [place] [address] PATHOLOGY RPT PROCEDURE Name: GLORIABALJIT SARKARY Room: [facility]#: [id number] Admission: 11/25/18 Date of : 52 Discharge: Report #: [id number] Path Case #: [id number] abnormal populations when they are detected. Negative flow cytometry results do not exclude lymphoma or neoplasia. Possible false negative flow cytometry results may occur in, but are not limited to, the following: neoplastic cells in Hodgkin lymphoma are not typically adequately represented by routine clinical flow cytometry; neoplastic cells may be lost or inadequately represented due to degeneration, sample processing, sampling artifact, or patchy involvement; plasma cells are typically underrepresented by flow cytometry; immature cells/blasts may be underrepresented due to hemodilution; myeloproliferative disorders and low grade myelodysplasia may not have immunophenotypic abnormalities or increased blasts. Correlation with all available clinical, laboratory, and morphologic data is always necessary to assess for the possibility of false negative flow cytometry results and to establish a diagnosis. Each marker in this analysis was used to assess for potential antigenic abnormalities or to evaluate detected abnormalities. . Disclaimer(s) This test was performed at [facility]. at [address] [place] [address], [place], [address] - [employer] Supervisor: Edwin Lee MD. . [employer] is a business unit of [employer] a wholly-owned subsidiary of [employer]. . Any image or images that accompany this report are quality assurance representative images only and should not be used to render a diagnosis. . This test was developed and its performance characteristics determined by [facility]. It has not been cleared or approved by the Food and Drug Administration (FDA). The FDA has determined that such clearance or approval is not necessary. . For inquiries, the physician may contact Lab: [phone] . A complete copy of the report is on file. . Professional services performed by [facility]. at [address], [place] [address]. Technical services performed by [facility]. at [address], [place] [address]. . (BENNY: 11/27/2018) QMS/11/27/2018 . 02 Comment: Overall the bone marrow is hypercellular for the patient's age with diffuse interstitial involvement by chronic lymphocytic leukemia/[place] [address] PATHOLOGY RPT PROCEDURE Name: BALJIT SINGH Room: [facility]#: [id number] Admission: 11/25/18 Date of : 52 Discharge: Report #: [id number] Path Case #: [id number] lymphocytic lymphoma. There is approximately 90% involvement by immunohistochemical staining. Correlation with clinical history, additional laboratory data, radiographic findings, and cytogenetic/FISH/molecular studies is required. (CLW:azeem; 11/27/2018) . 02 Addendum: . Special studies report received from [facility], [address] [place] [address], [address], [place], [address], on case [id number], labeled with their number [id number], dated 11/28/2018 . Fluorescence in situ Hybridization (FISH) Report [employer] Analysis . 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 Specimen Type: Bone Marrow Indication for Study: Evaluate for CLL . INTERPRETATION: Fluorescence in situ hybridization (FISH) analysis was performed on this patient's specimen using DNA probes for CLL panel. . Two hundred interphase nuclei were examined for each probe and the signal patterns revealed the following: . 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 . The signal pattern obtained with the remaining probes did not differ significantly from the normal controls. . Deletion of the long arm of chromosome 13 is the most common genetic alteration in B-cell chronic lymphocytic leukemia (B-CLL) by FISH analysis and is seen in 50 to 60% of patients. Isolated deletion 13q14.3 is considered a favorable prognostic indicator in the absence of adverse genetic markers. . Genetic changes other than those assayed in this study cannot be ruled out on the basis of this testing. Correlation with cytogenetic, clinical and hematopathological findings is suggested for a complete interpretation of the results. Follow-up FISH analysis may be considered as a means to monitor the clinical course of the disease. . See Flow Cytometry report [id number] for further information. See Cytogenetic report [id number] for further information. See Molecular report [id number] for further [place] [address] PATHOLOGY RPT PROCEDURE Name: BALJIT SINGHY Room: [facility]#: [id number] Admission: 11/25/18 Date of : 52 Discharge: Report #: [id number] Path Case #: [id number] The following [employer] FISH analysis was performed on this patient's specimen: . Probe Detection Parameters Result ISCN Centromere 12 Detects a trisomy 12 Not Detected nuc garrison(U65Q8y6)[200] 13q14(DLEU1) Detects a deletion of 13q Detected nuc garrison(AQZR2d0,WBKQ3s6)[118/200] CAREN/11q Detects a deletion of CAREN gene Not Detected nuc garrison(ATMx2)[200] TP53/17p13 Detects a deletion of TP53 gene Not Detected nuc garrison(TP53x2)[200] CCND1/IGH - Detects a CCND1/IGH translocation Not Detected nuc garrison (CCND1, IGH)x2[200] t(11;14) . . at [facility]. De Salomon, PhD, [facility] Director of Clinical Cytogenetics . Methodology: The patient specimen is processed onto a glass slide. Fluorescent DNA probe(s) is(are) applied to the cells on the slide under conditions of denaturation followed by hybridization. Stringency washes are applied and the slide is subsequently counterstained. A minimum of 100 interphase nuclei are analyzed unless otherwise indicated above. . Disclaimer This Test was performed by [facility]. at [address] [place] [address]. [employer] is a business unit of [employer] a wholly-owned subsidiary of [employer]. . This test was developed and its performance characteristics determined by [employer]. It has not been cleared by the Food and Drug Administration. The FDA has determined that such clearance or approval is not necessary. . Any image(s) that accompany this report is/are a quality assurance representative image(s) only and should not be used to render a diagnosis. . A complete copy of the report is on file. . . Professional services performed by [facility]. at [address] [place] [address]. Technical services performed by [facility]. at [address] [place] [address] PATHOLOGY RPT PROCEDURE Name: BALJIT SINGH Room: [facility] GERALD Steele#: [id number] Admission: 11/25/18 Date of : 52 Discharge: Report #: [id number] Path Case #: [id number]. . (BENNY: 11/30/2018) QMS/11/30/2018 Addendum Electronically Signed by Acacia Arriaga MD, Pathologist Addendum #2: Special studies report received from [facility], [address] [place] [address], [address], [place], [address], on case [id number], labeled with their number [id number], dated 12/01/2018. . Immunoglobulin Heavy Chain Gene Variable Region (IgVH) Somatic Hypermutation Analysis . INTERPRETATION: IgVH Somatic Hypermutation was detected. . Indication for Study: CLL . Specimen Type: Bone Marrow . Comments: IgVH Somatic Hypermutation Analysis revealed a clonal B cell population in which the IgVH gene VH4-34 was positive for somatic hypermutation (mutated). The IgVH clone isolated is considered hypermutated when the mutation rate compared to the germline sequence is greater than 2.0%. In univariate analysis studies, unmutated VH and high CD38 expression levels predicted for shorter survival times. In multivariate analysis, unmutated VH, 17p deletion, 11q deletion, age, WBC, and LDH were identified as independent prognostic factors, indicating a complementary role of VH mutation status and genomic aberrations to predict outcome in CLL. . These results should be interpreted in the context of all clinical and laboratory findings. . See Flow Cytometry report [id number] for further information. See Cytogenetic report [id number] for further information. See FISH report [id number] for further information. . Analytical Results: Assay Type Detection Parameters Result IgVH Mutation Analysis VH1-7 Mutated, 2.4% . at [employer] Theodore, Ph.D., SMITH DABMG, DABCC, DLMcm, M(ASCP)cm, MB(ASCP)cm . Methodology: [place] [address] PATHOLOGY RPT PROCEDURE Name: BALJIT SINGH Room: [facility].#: [id number] Admission: 11/25/18 Date of : 52 Discharge: Report #: [id number] Path Case #: [id number] The Immunoglobulin Heavy Chain Gene Variable Region (IgVH) Somatic Hypermutation Analysis assay is performed using extracted patient RNA as starting material. Subsequent amplification of the IgH gene is performed by polymerase chain reaction (PCR). The PCR products are isolated and sequenced. The nucleotide sequence is compared to a consensus germline sequence database for that VH gene family. The results are reported as percentage of homology between the patient's VH sequence in comparison with the germline VH sequence using the Basic Local Alignment Search Tool (BLAST) for the immunoglobulin database at http://www.ncbi.nlm.nih.gov/igblast. . Intended Use: The IgVH gene mutation status is one of the discriminators of clinical outcome of patients with Chronic Lymphocytic Leukemia (CLL). The sensitivity of the assay is approximately 15% of the clonal B-cell in the polyclonal background. The results of this analysis are to be interpreted in the context of all clinical and laboratory findings. No therapeutic action should be taken solely based upon these results. . References: 1. A. Krvber, et al. (2002) VH mutation status, CD38 expression level, genomic aberrations, and survival in chronic lymphocytic leukemia. Blood 100(4):4189-1642. 2. Chika. Katharine et al. (1998) Chronic Lymphocytic Leukemia B Cells Express Restricted Sets of Mutated and Unmutated Antigen Receptors. J Clin Invest 102(8):3266-3112. 3. Sandra Gray et al. (1999) Unmutated IgVH genes are associated with a more aggressive form of chronic lymphocytic leukemia. Blood 94(6):8634-7833. 4. Chika. Svitlana et al. (1998) The complete nucleotide sequence of the human immunoglobulin heavy chain variable region locus. J. Exp Med 188(11):9901-3372. . Disclaimer This Test was performed by [facility] [employer]. at [address] [place] [address], [facility]. . [facility] is a business unit of [employer] a wholly-owned subsidiary of [employer]. . This test was developed and its performance characteristics determined by [employer]. It has not been cleared or approved by the Food and Drug Administration. . A complete copy of the report is on file. . Professional services performed by [facility]. at [address] [place] [address]. [place] [address] PATHOLOGY RPT PROCEDURE Name: BALJIT SINGH Room: [facility]#: [id number] Admission: 11/25/18 Date of : 52 Discharge: Report #: [id number] Path Case #: [id number] [facility] at [address], [place] [address]. (BENNY: 12/01/2018) . QMS/12/02/2018 Addendum Electronically Signed by Acacia Arriaga MD, Pathologist . 02 Electronically signed: . Acacai Arriaga MD, Pathologist NPI- [id number] . 01 Gross description: . A. The specimen is received in formalin, labeled "Baljit Singh, core" and consists of a davison-brown bone core measuring 0.5 x 0.3 x 0.2 cm which is entirely submitted in A1 following decalcification. . B. The specimen is received in formalin, labeled "Baljit Singh, clot" and consists of blood clot measuring 2.7 x 2.5 x 0.6 cm which is entirely submitted in B1. (SDY; 11/25/2018) SYU/SYU . 02 Microscopic: . CBC Data (11/25/2018): WBC 86,700 /uL, RBC 3.60, hemoglobin 11.2 g/dL, hematocrit 34.6%, MCV 96.2 fL, MCH 31.0 pg, MCHC 32.3 g/dL, RDW 15.2%, and platelet count 107,000 /uL. White blood cell differential: segs 3%, lymphs 92%, atypical lymphs 5%. . Peripheral Blood Smear: Cytomorphological examination of the Huffman's stained peripheral blood smear confirms the provided data. Red blood cells show mild normocytic anemia with no significant anisopoikilocytosis. White blood cells are markedly increased in number. They are predominantly lymphocytes that are small, round and mature appearing with condensed chromatin and scant cytoplasm. No significant large lymphoid (prolymphocyte) component is identified. Platelets are mildly decreased in number and mainly normal in morphology with rare larger platelets noted. . Aspirate Smears: Cytomorphological examination of the Huffman's stained aspirate smears shows hypercellular spicules present. The cellularity is approximately 80%. The predominant nucleated cells seen is a small, round mature appearing lymphocyte with condensed chromatin and scant cytoplasm. Lymphoid aggregates are noted. Apart from the lymphoid infiltrate, the myeloid to erythroid ratio is 1:1. Myeloid and erythroid maturation are mildly dyserythropoietic. In a 500 cell differential, there are less than 1% blasts (no Sheryl rods are seen), 4% more differentiated myeloids, 4% erythroid precursors, and 92% lymphocytes. Megakaryocytes are proportional in number and both normal [place] [address] PATHOLOGY RPT PROCEDURE Name: BALJIT SINGH Room: [facility]#: [id number] Admission: 11/25/18 Date of : 52 Discharge: Report #: [id number] Path Case #: [id number] variable sizes and nuclear abnormalities. Iron stain of the aspirate smear shows 2/4+ iron positivity with spicules present. No ringed sideroblasts are identified. . Core Biopsy and Cell Clot: The decalcified bone marrow core biopsy is small but adequate. The bone marrow is hypercellular with an overall cellularity of 80 to 90%. There is a diffuse atypical interstitial lymphoid infiltrate composed of predominantly small, round and mature appearing lymphocytes with condensed chromatin and scant cytoplasm. Background trilineage hematopoiesis is reduced. The myeloid to erythroid maturation are without significant dyspoiesis. Megakaryocytes are present and unremarkable. No markedly atypical lymphoid cells are seen. Bony trabeculae and blood vessels are unremarkable. The cell clot has rare spicules present that are similar in cellularity and differential morphology as previously described with an increase in small mature appearing lymphocytes. . Properly controlled special stains are performed. . Block A1 Iron - 1/4+ iron positivity Reticulin - 2/4+ reticulin fibrosis . Block B1 Iron - 1/4+ iron positivity with spicules present . To further quantify the neoplastic B-cell population and to identify cells in a tissue architectural context, properly controlled immunohistochemical stains are performed. . Block A1 PAX5 - Stains approximately 90% neoplastic B-cells; CD3 - Stains rare admixed T-cells; Cyclin D1 - Essentially nonreactive. . Block B1 PAX5 - Stains approximately 90% neoplastic B-cells; CD3 - Highlights rare admixed T-cells; Cyclin D1 - Essentially nonreactive. . Flow Cytometry: Flow cytometric immunophenotypic analysis was performed at [facility]. The diagnosis is "CD5 positive monotypic (clonal) B-cell population (92% of leukocytes) with a B-cell chronic lymphocytic leukemia/small lymphocytic lymphoma (CLL/SLL) immunophenotype". There are 92% abnormal B-cells that are small to intermediate in cell size and characterized as CD45 pos, CD5 pos, CD10 neg, CD11b neg, CD11c neg/pos, CD19 pos, CD20 pos (dim), CD22 pos (dim), CD23 pos, CD38 neg, FMC7 neg, HLA-DR pos and surface Ig kappa pos. The 11.18% [place] [address] PATHOLOGY RPT PROCEDURE Name: BALJIT SINGH [facility] [id number] Admission: 11/25/18 Date of : 52 Discharge: Report #: [id number] Path Case #: [id number] include 0.05% polyclonal B-cells. T-cells have a CD4/CD8 ratio of 1.9 and no aberrant T-cell antigen expression. There are 0% blasts. Please see separate flow cytometry report from [facility] ([id number]). . Cytogenetics Analysis: Cytogenetic chromosomal analysis is pending at [facility] ([id number]). . FISH analysis is pending at [facility] ([id number]). . IgVH somatic hypermutation analysis is pending at [facility] ([id number]). (CLW:azeem; 11/27/2018) . 02 Pathologist provided ICD-10: C91.10 . 02 CPT . 867644, 429137, 482494, 697821, 953097, 584050, 292018, 587542, 584256, N03635, V48538 Specimen Comment: A courtesy copy of this report has been sent to Specimen Comment: [phone], . Specimen Comment: Report sent to / DR LEZAMA Performed at: 01 [facility] [address] [id number] MD Bashir Tijerina MD Phone: [phone] Performed at: 02 [facility] [address] [id number] MD Harish Nice MD Phone: [phone]
== END | disposition home or self-care (01) ==
LOC: M.INT 08:09
PROVIDERS: Radiology Diagnostic Radiology
DX: C91.10 Chronic lymphocytic leukemia of B-cell type not having achieved remission (principal); I10 Essential (primary) hypertension; E78.00 Pure hypercholesterolemia, unspecified; I25.2 Old myocardial infarction; E10.9 Type 1 diabetes mellitus without complications; Z90.49 Acquired absence of other specified parts of digestive tract; Z79.01 Long term (current) use of anticoagulants; Z98.890 Other specified postprocedural states; Z79.899 Other long term (current) drug therapy; Z88.8 Allergy status to other drugs, medicaments and biological substances; Z79.4 Long term (current) use of insulin

== ENCOUNTER 2019-01-07 16:26 | Emergency (ER) | payer OTHER ==
[~2019-01-07] VITALS: Ht 190.5 cm; Wt 131.5 kg
[2019-01-07 17:14] LABS: HEMOGLOBIN 10.2 gm/dL (14.0-18.0); MCV 96.9 fL (80.0-100.0); MPV 9.1 fl. (7.2-11.1); RBC 3.3 mil/uL (4.50-6.00); RDW-CV 15.8 % (10.5-14.5)
[2019-01-07 17:18] LABS: WBC 118.7 thou/uL (4.0-11.0)
[2019-01-07 17:25] LABS: INR 3.9
[2019-01-07 18:23] VITALS: BP 129/78
[2019-01-08] MEDS ORDERED: COUMADIN 5 MG TA5 M1 PO (08:26)
== END 2019-01-07 18:23 | disposition home or self-care (01) ==
LOC: M.ERS 16:26
PROVIDERS: Emergency Medicine Emergency Medical Services
DX: K91.840 Postprocedural hemorrhage of a digestive system organ or structure following a digestive system procedure (principal); I10 Essential (primary) hypertension; E78.00 Pure hypercholesterolemia, unspecified; E10.9 Type 1 diabetes mellitus without complications; Z95.5 Presence of coronary angioplasty implant and graft; Z90.49 Acquired absence of other specified parts of digestive tract; Z88.8 Allergy status to other drugs, medicaments and biological substances; Z79.4 Long term (current) use of insulin

== ENCOUNTER 2019-01-08 08:16 | Emergency (ER) | payer OTHER ==
[~2019-01-08] VITALS: Ht 190.5 cm; Wt 131.5 kg
[2019-01-08] MEDS ORDERED: COUMADIN 5 MG TA5 M1 PO (08:26)
[2019-01-08 09:23] LABS: HEMATOCRIT 32.3 % (42.0-52.0); HEMOGLOBIN 10.4 gm/dL (14.0-18.0); MCH 31.2 pg (26.0-34.0); MCHC 32.4 g/dL (28.0-37.0); MCV 96.4 fL (80.0-100.0); NUCLEATED RBCS 1 /100WBC; PLATELET COUNT* 160 thou/uL (150-400); RBC 3.35 mil/uL (4.50-6.00); RDW-CV 15.5 % (10.5-14.5)
[2019-01-08 09:25] LABS: INR 4.1; PROTIME 39.9 Seconds (9.20-11.50)
[2019-01-08 09:26] LABS: WBC 148.1 thou/uL (4.0-11.0)
[2019-01-08 09:35] VITALS: BP 110/68
[2019-01-08 09:57] LABS: ABSOLUTE LYMPHOCYTES 145.1 thou/uL (0.8-5.3); ATYPICAL LYMPHS 7 %; PLATELET ESTIMATE DECREASED
[2019-01-08 09:58] LABS: ANISOCYTOSIS Occasional; HYPOCHROMASIA 1+; MICROCYTES 1+
== END 2019-01-08 09:35 | disposition home or self-care (01) ==
LOC: M.ERS 08:16
PROVIDERS: Emergency Medicine
DX: C91.10 Chronic lymphocytic leukemia of B-cell type not having achieved remission (principal); I10 Essential (primary) hypertension; E78.00 Pure hypercholesterolemia, unspecified; E10.9 Type 1 diabetes mellitus without complications; Z95.5 Presence of coronary angioplasty implant and graft; Z98.818 Other dental procedure status; Z88.8 Allergy status to other drugs, medicaments and biological substances; Z90.49 Acquired absence of other specified parts of digestive tract

== ENCOUNTER 2019-01-09 02:15 | Emergency (ER) | payer OTHER ==
[~2019-01-09] VITALS: Ht 190.5 cm; Wt 131.5 kg
[2019-01-09 06:25] VITALS: BP 139/61
== END 2019-01-09 06:25 | disposition home or self-care (01) ==
LOC: M.ERS 02:15
DX: K06.8 Other specified disorders of gingiva and edentulous alveolar ridge (principal); I10 Essential (primary) hypertension; E78.00 Pure hypercholesterolemia, unspecified; E10.9 Type 1 diabetes mellitus without complications; Z90.49 Acquired absence of other specified parts of digestive tract; Z95.5 Presence of coronary angioplasty implant and graft; Z95.1 Presence of aortocoronary bypass graft; Z88.8 Allergy status to other drugs, medicaments and biological substances

== ENCOUNTER → 2020-02-08 | Outpatient (CLI) | payer OTHER | LOC: M.ULTRA 07:14 | PROVIDERS: ATTEND Internal Medicine | DX: N18.30 Chronic kidney disease, stage 3 unspecified (principal) ==

== ENCOUNTER 2020-06-19 11:49 | Inpatient (IN) | payer OTHER ==
[~2020-06-19] VITALS: Ht 190.5 cm; Wt 129.3 kg
[~2020-06-19 11:49] MED LIST changes: +JANTOVEN5 MG PO
[2020-06-19 11:51] VITALS: BP 120/84
[2020-06-19 12:18] LABS: HEMATOCRIT 38.3 % (42.0-52.0); HEMOGLOBIN 12.7 gm/dL (14.0-18.0); MCHC 33.1 g/dL (28.0-37.0); MCV 90.8 fL (80.0-100.0); MPV 9.9 fl. (7.2-11.1); RBC 4.22 mil/uL (4.50-6.00); RDW-CV 14.5 % (10.5-14.5); WBC 9.1 thou/uL (4.0-11.0)
[2020-06-19 12:27] LABS: CALCIUM 9.2 mg/dL (8.5-10.1); CREATININE 1.6 mg/dL (0.6-1.3); POTASSIUM 3.7 mmol/L (3.5-5.1)
[2020-06-19 12:33] LABS: ALBUMIN 3.2 g/dL (3.4-5.0); TOTAL BILIRUBIN 2.5 mg/dL (<0.1-1.0); TOTAL PROTEIN 5.9 g/dL (6.4-8.2)
[2020-06-19] MEDS ORDERED: BENAZEPRIL HCL20 MG PO (12:57)
[2020-06-19] MEDS ORDERED: IMBRUVICA140 MG PO (12:59)
[2020-06-19 15:02] VITALS: BP 119/80
[2020-06-19 15:30] VITALS: BP 122/84
--- NOTE | 2020-06-19 16:20 | EKG ---
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 : 1950 Requested By: Garrett Ricardo Order Number: [id number] MD: Chan Mcfarland Measurements Intervals [place] Rate: 133 P: OR: QRS: 35 QRSD: 117 T: QT: 308 QTc: 459 Interpretive Statements Atrial fibrillation anterior infarction old Inferior infarct, age indeterminate Lateral leads are also involved Compared to ECG 07/10/2018 11:42:38 Sinus rhythm no longer present Myocardial infarct finding still present Electronically Signed On 06-19-2020 16:20:08 ACTIVITY SPECIALIST by Chan Mcfarland [email or web address] <ELECTRONICALLY SIGNED> By: Chan Mcfarland MD, FAC 06/19/20 1620 1157 1157 Chan Mcfarland MD, FAC /EPI
--- NOTE | 2020-06-19 16:21 | EKG ---
[place] [address] ELECTROCARDIOGRAM REPORT Name: JER CASTRO Room: [address] ADM IN M.R.#: [id number] Admission: 06/19/20 Attend Phys: Steve Huang, Discharge: Date of : 52 Date of Service: 06/19/20 1310 Report #: [id number] THIS REPORT FOR: //name// [facility] ED Test Date: 2020-06-19 Test Time: 13:10:21 Pat Name: JER CASTRO Department: Room: [facility] Gender: M Senior [employer] [address] Sql Developer: ANTHONY : 1950 Requested By: Garrett Ricardo Order Number: [id number] MD: Chan Mcfarland Measurements Intervals [place] Rate: 95 P: MI: QRS: 16 QRSD: 131 T: 204 QT: 339 QTc: 426 Interpretive Statements Atrial fibrillation IVCD, consider atypical RBBB Inferior infarct, old Probable anterior infarct, age indeterminate Compared to ECG 06/19/2020 11:57:27 rate has slowed Myocardial infarct finding still present Electronically Signed On 06-19-2020 16:21:22 ART MANAGER by Chan Mcfarland [email or web address] <ELECTRONICALLY SIGNED> By: Chan Mcfarland MD, FACC 06/19/20 1621 1310 1310 Chan Mcfarland MD, [facility] /EPI
--- NOTE | 2020-06-19 17:28 | NUR ---
1700, PT ATTEMPTED TO SIT AT SIDE OF BED TO VOID. WITH EXERTION, HEART RATE REACHED HIGH 200. RATES DROPPED BACK TO 100-115 AFTER 5 MINUTES OF REST. CALLED, SEE MED ORDER.
[2020-06-19 19:45] VITALS: BP 122/70
[2020-06-19 23:37] VITALS: BP 125/79
[2020-06-20 04:14] VITALS: BP 120/87
--- NOTE | 2020-06-20 04:38 | NUR ---
NO ACUTE CHANGES THROUGHOUT SHIFT. FULL ASSESSMENT COMPLETED CHARTED, ALL MEDS ADMINISTERED PER EMAR. ALL ROUNDINGS COMPLETED, ALL NEEDS MET.
[2020-06-20 04:40] LABS: PROTIME 49.2 Seconds (9.20-11.50)
[2020-06-20 04:48] LABS: ABSOLUTE EOSINOPHILS 0.1 thou/uL (0.0-0.7); ABSOLUTE MONOCYTES 0.5 thou/uL (0.0-1.2); ABSOLUTE NEUTROPHILS 5.4 thou/uL (1.6-8.1); BASOPHILS 0.2 %; EOSINOPHILS 0.5 %; HEMOGLOBIN 12.3 gm/dL (14.0-18.0); LYMPHOCYTES 45.4 %; MCHC 33.2 g/dL (28.0-37.0); MCV 90.2 fL (80.0-100.0); MONOCYTES 4.7 %; MPV 10.7 fl. (7.2-11.1); NUCLEATED RBCS 0 /100WBC; PLATELET COUNT* 124 thou/uL (150-400); POLYS 49.2 %; RDW-CV 14.8 % (10.5-14.5)
[2020-06-20 04:56] LABS: INR 5.1
[2020-06-20 05:04] LABS: ANION GAP 8 mmol/L (7-16); BUN 21 mg/dL (7-18); CHLORIDE 102 mmol/L (98-107); CHOLESTEROL 98 mg/dL (<200); CO2 28 mmol/L (21-32); CREATININE 1.5 mg/dL (0.6-1.3); GLUCOSE 112 mg/dL (70-99); HDL CHOLESTEROL 33 mg/dL (>40); LDL CHOLESTEROL 41 mg/dL (<100); POTASSIUM 3.4 mmol/L (3.5-5.1); SODIUM 138 mmol/L (136-145); TRIGLYCERIDE 121 mg/dL (<150); VLDL 24 mg/dL (<40)
[2020-06-20 05:08] LABS: SERUM ASSESSMENT Clear
[2020-06-20 05:09] LABS: TROPONIN-I LEVEL 4.77 ng/mL (<0.06)
[2020-06-20 08:33] VITALS: BP 133/84
[2020-06-20 09:12] LABS: ALBUMIN 3.2 g/dL (3.4-5.0); ALKALINE PHOSPHATASE 168 U/L (46-116); SGOT 32 U/L (15-37); SGPT 19 U/L (30-65); TOTAL BILIRUBIN 2.5 mg/dL (<0.1-1.0); TOTAL PROTEIN 5.9 g/dL (6.4-8.2)
[2020-06-20 11:10] VITALS: BP 110/76
--- NOTE | 2020-06-20 12:08 | CON ---
[address] [address] CONSULTATION Name: JER CASTRO Room: [address] ADM IN M.R.#: [id number] Admission: 06/19/20 Attend Phys: Steve Huang MD Discharge: Date of : 52 Report #: [id number] THIS REPORT FOR: cc: FAM - No family physician/PCP FAM - No family physician/PCP ~ Chan Mcfarland MD [facility] DATE OF SERVICE: 06/19/2020 CARDIOLOGY CONSULTATION HISTORY OF PRESENT ILLNESS: The patient is a 69-year-old white male who I was asked to see in the Emergency Room today after he was noted to have elevated troponin. The patient has a long extensive past medical history. Unfortunately, he is not clear on all of his past history. He states he had a bypass surgery years ago at [facility]. He has never required stent. He has a history of permanent atrial fibrillation and has been on warfarin. He apparently had a pacemaker in place last fall for slow rates of atrial fibrillation. He has never required ____ has been chronically anticoagulated. He actually had a cardiac catheterization here at [facility] [address] Dominguez. He is in sinus rhythm at that time. Ejection fraction of 55%. The LAD, circumflex, and right coronary artery were all totally occluded. There is a patent vein graft to circumflex artery, patent vein graft to the diagonal artery, vein graft to the right coronary, had 50% proximal stenosis. However, the distal right coronary artery was totally occluded. There is patent SHAIKH graft to the LAD. Medical therapy was recommended. The patient has a history of leukemia and apparently is receiving oral chemotherapy. He notes that 3 days ago, he was downtown going up some steps and sun was in his eyes. He then walked to the car and fell down. He did not hurt himself. He was checked out by vice squad police officer, but did not come to the hospital. Ever since he has been very weak and has had some shortness of breath and no appetite. He denies any fever, cough, vomiting, bleeding. He denies chest pain, palpitations, lightheadedness. Because of weakness, he finally called the ambulance this morning, was brought to [facility]. He is noted to have an abnormal troponin and Cardiology consultation requested. PAST MEDICAL HISTORY: Otherwise, he has had a previous appendectomy. He has a history of diabetes, hypertension. His history is significant. He was here in 2019 with confusion, felt to have septicemia. He has chronic kidney disease. He was here in 2016 with treatment of his lymphoma. CURRENT MEDICATIONS: Consist of warfarin, Aldactone, metoprolol, Lotensin, insulin. ALLERGIES: HE HAS A PREVIOUS INTOLERANCE TO [place] [address] CONSULTATION Name: JER CASTRO Room: [address] IN [facility]#: [id number] Admission: 06/19/20 Attend Phys: Steve Huang MD Discharge: Date of : 52 Report #: [id number] FAMILY HISTORY: His brother had heart problems with stent. SOCIAL HISTORY: He is . 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 Does not work at this time. He lives at home with his . No smoking or alcohol abuse. REVIEW OF SYSTEMS: He is overweight, being 6 feet 3 inches, 280 pounds. He has no history of stroke, asthma, liver disease. He has chronic kidney disease. No chronic skin condition. No psychiatric illness. PHYSICAL EXAMINATION: GENERAL: Revealed a large, elderly male, lying in bed, appeared in no acute distress. VITAL SIGNS: He had a blood pressure of 110/70, pulse was 90. He was afebrile. HEENT: He was anicteric. Conjunctivae pink. Mucous membranes appear dry. NECK: Veins do not appear distended. No carotid bruits. CHEST: Clear to auscultation. CARDIOVASCULAR: Irregular rhythm. No significant murmur. ABDOMEN: Soft. EXTREMITIES: Had trace edema. Dorsalis pedis pulse cannot be palpated. RADIOLOGICAL DATA: His ECG on admission showed atrial fibrillation. There is no paced beats noted. Nonspecific ST and T-wave changes were noted. His workup, he had an echocardiogram performed in 2019 that showed evidence of moderate aortic stenosis with peak gradient of 52 mmHg. Left ventricular systolic function appeared moderately decreased. His x-rays today, he had a portable chest x-ray that showed cardiomegaly, some atelectasis. He had a CT scan of the head performed in the Emergency Room today without contrast that showed no significant abnormalities. LABORATORY WORK: Sodium 132, potassium 3.7, BUN 24, creatinine 1.6, it has been as high as 2.3 in 2010. His glucose was 301. His bilirubin was 2.5, alkaline phosphatase 167, SGPT 19. Albumin 3.2. Troponin elevated at 4.87. His INR is 5. His white blood cell count 9.1, hematocrit 38.3, platelet count 117,000. His COVID antigen stat test was negative. IMPRESSION AND RECOMMENDATIONS: 1. Elevated troponin. No history of angina. Recommend a conservative approach. I would not recommend cardiac catheterization or stent at this time. 2. Previous coronary artery bypass surgery. I would consider aspirin 81 mg a day. 3. Hypertension. The patient has been on a beta grayson and DOTTY inhibitor. 4. Cardiomyopathy. The patient is on Aldactone, beta grayson [place] [address] CONSULTATION Name: JER CASTRO Room: [address] IN ..#: [id number] Admission: 06/19/20 Attend Phys: Steve Huang MD Discharge: Date of : 52 Report #: [id number] 5. Hyperlipidemia. The patient is on a statin drug. 6. Chronic atrial fibrillation. Rate controlled with beta-grayson. I would continue chronic anticoagulation, but I would hold warfarin until INR is between 2 and 3. 7. Diabetes. The patient is on insulin. 8. Chronic kidney disease. 9. Elevated liver enzymes. 10. Leukemia. The patient is on oral chemotherapy. He has a history of chronic lymphocytic leukemia. 11. Obesity. <ELECTRONICALLY SIGNED> By: Chan Mcfarland MD, FACC 06/20/20 1208 1343 [id number] Mcfarland MD, FACC /nt
--- NOTE | 2020-06-20 12:39 | 2DMMODE ---
[place] [address] 2 D/M-MODE ECHOCARDIOGRAM Name: CASTROJER RONQUILLO Room: [address] IN [facility]#: [id number] Admission: 06/19/20 Attend Phys: Steve Huang, Discharge: Date of : 52 Date of Service: 06/20/20 1239 Report #: [id number] THIS REPORT FOR: cc: FAM - No family physician/PCP FAM - No family physician/PCP Giovanni Medina MD [facility] WITH [facility] ~ ADDENDUM APPROVED REPORT Study performed: 06/20/2020 11:07:54 EXAM: Comprehensive 2D, Doppler, and color-flow Echocardiogram Patient Location: In-Patient Room #: [facility] Status: routine BSA: 2.41 HR: 67 bpm BP: 133/84 mmHg Rhythm: Atrial Fibrillation Other Information Study Quality: Good Indications Acute MS 2D Dimensions IVSd: 12.37 (7-11mm) LVOT Diam: 21.71 (18-24mm) LVDd: 64.88 mm PWd: 12.23 (7-11mm) Ascending Ao: 39.65 (22-36mm) LVDs: 56.19 (25-40mm) Aortic Root: 39.70 mm Volumes Left Atrial Volume (Systole) LA ESV Index: 58.80 mL/m2 Aortic Valve AoV Peak Joel.: 2.66 m/s AO Peak Gr.: 28.22 mmHg LVOT Max P.02 mmHg AO Mean Gr.: 17.16 mmHg LVOT Mean P.57 mmHg LVOT Max V: 0.51 m/s AO V2 VTI: 47.65 cm LVOT Mean V: 0.35 m/s ERIN (VTI): 0.67 cm2 LVOT V1 VTI: 8.69 [place] [address] 2 D/M-MODE ECHOCARDIOGRAM Name: JER CASTRO Room: [address] IN [facility]#: [id number] Admission: 06/19/20 Attend Phys: Steve Huang, Discharge: Date of : 52 Date of Service: 06/20/20 1239 Report #: [id number] TDI Medial E' Joel.: 0.04 m/s Lateral E' Joel.: 0.10 m/s Pulmonary Valve PV Peak Joel.: 0.72 m/s PV Peak Gr.: 2.06 mmHg Tricuspid Valve RAP Estimate: 15.00 mmHg TR Peak Gr.: 35.48 mmHg RVSP: 50.00 mmHg PA Pressure: 50.00 mmHg Left Ventricle Left ventricle is moderately dilated. There is severe global hypokinesis. Additionally there is left ventricular systolic dyssynergy consistent with underlying bundle branch block. Mild concentric left ventricular hypertrophy. Left ventricular systolic function is severely decreased. LVEF is 20-25%. This study is not technically sufficient to allow evaluation of the LV diastolic function due to atrial fibrillation. Right Ventricle Right ventricle is moderately dilated. The right ventricular systolic function is normal. Pacemaker lead is present in the right ventricle. Atria Left atrium is moderately dilated. Right atrium is moderately dilated. Aortic Valve Severe aortic valve sclerosis. No aortic regurgitation is present. Severe aortic stenosis. Mitral Valve Moderate mitral annular calcification. Trace mitral regurgitation. Moderate mitral stenosis. Tricuspid Valve The tricuspid valve is normal in structure. Mild tricuspid regurgitation. Moderate pulmonary hypertension. Pulmonic Valve The pulmonary valve is normal in structure. Mild pulmonic regurgitation[place] [address] 2 D/M-MODE ECHOCARDIOGRAM Name: GLORIAJER YG Room: [address]#: [id number] Admission: 06/19/20 Attend Phys: Steve Huang, Discharge: Date of : 52 Date of Service: 06/20/20 1239 Report #: [id number] The aortic root is normal in size. The ascending aorta is mildly dilated. IVC is dilated and collapses <50% with inspiration. Pericardium There is no pericardial effusion. <Conclusion> Left ventricle is moderately dilated. Mild concentric left ventricular hypertrophy. Left ventricular systolic function is severely decreased. LVEF is 20-25%. There is severe global hypokinesis. Additionally there is left ventricular systolic dyssynergy consistent with underlying bundle branch block. Right ventricle is moderately dilated. Left atrium is moderately dilated. Right atrium is moderately dilated. Severe aortic valve sclerosis. Severe aortic stenosis. Moderate mitral annular calcification. Moderate mitral stenosis. Mild tricuspid regurgitation. Moderate pulmonary hypertension. IVC is dilated and collapses <50% with inspiration. Pacemaker lead is present in the right ventricle. The ascending aorta is mildly dilated. <ELECTRONICALLY SIGNED> By: Giovanni Medina MD, FACC 06/20/20 1239 1239 1239 Giovanni Medina MD, FACC /INF
--- NOTE | 2020-06-20 12:51 | EKG ---
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 : 1950 Requested By: Chan Mcfarland Order Number: [id number] Reading MD: Chan Mcfarland Measurements Intervals [place] Rate: 101 P: MT: QRS: -8 QRSD: 111 T: 206 QT: 401 QTc: 520 Interpretive Statements Atrial fibrillation septal q waves Inferior infarct, old Lateral leads are also involved Prolonged QT interval Compared to ECG 06/19/2020 13:10:21 Prolonged QT interval now present Myocardial infarct finding still present Electronically Signed On 06-20-2020 12:50:57 SLACKMAN by Chan Mcfarland [email or web address] <ELECTRONICALLY SIGNED> By: Chan Mcfarland MD, [facility] 06/20/20 1250 0939 0939 Chan Mcfarland MD, FAC /EPI
--- NOTE | 2020-06-20 13:43 | NUR ---
Pt is A&O. Resides at home with his . Normally independent. No DME. No hx of HH or SNF. Pt states that he has a [employer] nurse that checks in on him. CM discussed cardiology's rec of possible SNF post dc. Pt/CM to await therapy evals to determine POC. Pt to have Echo today. Therapy evals pending.
--- NOTE | 2020-06-20 14:18 | EKG ---
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 : 1950 Requested By: Chan Mcfarland Order Number: [id number] Yamila MD: Chan Mcfarland Measurements Intervals [place] Rate: 107 P: TN: QRS: 8 QRSD: 129 T: 189 QT: 331 QTc: 442 Interpretive Statements Atrial fibrillation IVCD, consider atypical RBBB Inferior infarct, old Lateral leads are also involved Compared to ECG 06/19/2020 13:10:21 rate has increased Electronically Signed On 06-20-2020 14:18:42 BRINE PURIFIER by Chan Mcfarland [email or web address] <ELECTRONICALLY SIGNED> By: Chan Mcfarland MD, [facility] 06/20/20 1418 1715 1715 Chan Mcfarland MD, [facility] /EPI
--- NOTE | 2020-06-20 15:20 | NUR ---
Nutrition: Pt admitted with CAD, pacer. Consult for wt loss. Pt stated he has lost ~20# in past few months - mild loss. He stated he is not concerned with the wt loss; he is just less active and not eating as much as he used to. He does have a good appetite. He was sleepy during our visit. Labs: BG 112-191, albumin 3.2. Heart healthy diet. PMHx: CAD, CABG, HTN, IDDM. Current wt: 288#. GOALS: continued good meal intake, no wt loss >2% from 288#, good BG control. Mild to low nutrition risk.
[2020-06-20 16:13] VITALS: BP 103/80
[2020-06-20 20:00] VITALS: BP 115/82
[2020-06-21 01:46] VITALS: BP 102/66
[2020-06-21 04:54] LABS: HEMATOCRIT 38.4 % (42.0-52.0); HEMOGLOBIN 12.5 gm/dL (14.0-18.0); MCH 29.3 pg (26.0-34.0); MCHC 32.5 g/dL (28.0-37.0); MCV 90.3 fL (80.0-100.0); MPV 10.6 fl. (7.2-11.1); RBC 4.26 mil/uL (4.50-6.00); RDW-CV 14.8 % (10.5-14.5); WBC 11.4 thou/uL (4.0-11.0)
[2020-06-21 05:05] LABS: INR 3.9; PROTIME 37.8 Seconds (9.20-11.50)
[2020-06-21 05:15] LABS: ALBUMIN 3.2 g/dL (3.4-5.0); CREATININE 1.5 mg/dL (0.6-1.3); MAGNESIUM 2.2 mg/dL (1.8-2.4); POTASSIUM 3.7 mmol/L (3.5-5.1); TOTAL BILIRUBIN 2.4 mg/dL (<0.1-1.0); TOTAL PROTEIN 5.9 g/dL (6.4-8.2)
[2020-06-21 05:52] VITALS: BP 109/81
--- NOTE | 2020-06-21 06:20 | NUR ---
NO ACUTE CHANGES THROUGHOUT SHIFT. FULL ASSESSMENT COMPLETED CHARTED, ALL MEDS ADMINISTERED PER EMAR. ALL ROUNDINGS COMPLETED, ALL NEEDS MET. PT HAD A 6 BEAT RUN OF VTACH AT APPROX. 0600 THIS AM WHILE PT WAS ASLEEP. PT IS UP STANDBY AND IS UNCOOPERATIVE WITH FALL PRECAUTIONS.
[2020-06-21 08:00] VITALS: BP 111/17
[2020-06-21 12:00] VITALS: BP 104/75
--- NOTE | 2020-06-21 12:32 | NUR ---
Follow INR. Pt declining any post acute rehab, plan home with . HH to be arranged through [facility] p:[phone] f:[phone]
[2020-06-21 16:52] LABS: URINE BILIRUBIN NEGATIVE (Negative); URINE BLOOD TRACE (Negative); URINE CLARITY CLEAR; URINE COLOR YELLOW; URINE GLUCOSE-RANDOM NEGATIVE (Negative); URINE KETONES NEGATIVE (Negative); URINE LEUKOCYTES 1+ (Negative); URINE NITRITE NEGATIVE (Negative); URINE PROTEIN NEGATIVE (Negative)
[2020-06-21 17:02] VITALS: BP 102/65
[2020-06-21 17:06] LABS: HYALINE CASTS 0-3 Few /LPF (None Seen); SQUAMOUS NONE SEEN /LPF (0-3)
[2020-06-21 17:07] LABS: CRYSTALS None Seen /LPF (None Seen); MUCUS None Seen strn/LPF (None Seen); URINE RBC 0-2 Rare /HPF (0-2); URINE WBC 0-5 Rare /HPF (0-5)
--- NOTE | 2020-06-21 18:30 | NUR ---
RECEIVED REPORT. ASSUMED CARE OF PT AROUND 0730. AM ASSESSMENT AND VITALS COMPLETED CHARTED. MEDS PER EMAR. PT CONCERNED ABOUT HIS CANCER MED THAT HE HAS NOT BEEN GETTING - EDUCATED PT THAT MED IS BEING HELD DUE TO ELEVATED INR. PT COMMUNICATED UNDERSTANDING. PT HOPING TO GO HOME TOMORROW. REMAINS UNSTEADY AND DOES NOT CALL OUT FOR HELP WHEN GETTING UP. FALL PRECAUTIONS IN PLACE. CALL LIGHT WITHIN REACH. HOURLY ROUNDING PERFORMED.
[2020-06-21 19:30] VITALS: BP 101/73
[2020-06-22] VITALS: BP 85/67
[2020-06-22 04:00] VITALS: BP 102/70
--- NOTE | 2020-06-22 04:44 | NUR ---
PT AO X4 WITH HX OF FALL AT HOME, BRUISING TO LEGS AND FACE. PT IS UNSTEADY, ASSIST X 1 AND WALKER TO TOILET. PT DOES NOT USE CALL LIGHT APPROPRIATLY. PT BP HAS BEEN LOW THIS PM DESPITE HOLDING CARDIZEM DOSE X 1 DAY. PT LUNGS ARE DIMINISHED AND IS SHALLOW BREATHING. HE DENIES PAIN AND COUGH. 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
[2020-06-22 04:46] LABS: INR 2.9; PROTIME 28.8 Seconds (9.20-11.50)
[2020-06-22 08:00] VITALS: BP 99/71
[2020-06-22] MEDS ORDERED: LASIX 40 MG TAB40 MG PO (10:02)
--- NOTE | 2020-06-22 10:42 | NUR ---
cm faxed orders to [facility]. pt needs w/c transportation arranged.
[2020-06-22 13:50] VITALS: BP 99/71
[2020-06-22 14:34] VITALS: BP 99/71
--- NOTE | 2020-06-22 14:44 | NUR ---
AWAITING TRANSPORT TO ARRIVE FOR PT DC.DC INSTRUCTIONS REVIEWED WITH PT AND PT REPORTS UNDERSTANDING WITHOUT FURTHER QUESTIONS.
--- NOTE | 2020-06-23 11:41 | NUR ---
Spoke with the patients by phone, she states the patient is unsteady on his feet and she was concerned because he asked about their dog that has been for some time. She told him the dog was gone and he later asked again about the dog. She reports he is getting around better today than he was yesterday. She wanted to know if the hospital had evaluted him and were aware of how weak he was. I informed her that PT evaluated the patient and recommended Acute Rehab but the patient refused, he wanted to go home. She also said he would not follow her instructions to use a walker. She was aware he had wanted to come home. She had spoke with [facility] and they had said they would see him tomorrow. I suggested if she had concerns about his safety she should call his doctor. I told her I would talk with the mike that worked with him and see if we could make arrangement for him to be seen today. I got off the phone and spoke with the casemankatelynn Jacobs, she stated that PT saw the patient and recommended Rehab but the patient refused, he wanted to go home. The babatundeger said she would call and talk with [facility], inform them of the 's concerns and have them call her at home. I called the back and informed her what the mike had said and that [facility] would be calling her. I also instructed her that if she was concerned about the patients health or safety to bring him back to the hospital and she responded that the patient would refuse.
== END 2020-06-22 15:20 | disposition home health service (06) | DRG 551 ==
LOC: M.ERS 11:49 → M.2W 13:44 → M.TBA-ER 13:44 → M.2W 15:22
PROVIDERS: Emergency Medicine; Internal Medicine; Internal Medicine Cardiovascular Disease; ADMIT Internal Medicine; ATTEND Internal Medicine
DX: S32.039A Unspecified fracture of third lumbar vertebra, initial encounter for closed fracture (principal); I21.A1 Myocardial infarction type 2; C91.10 Chronic lymphocytic leukemia of B-cell type not having achieved remission; N17.9 Acute kidney failure, unspecified; I42.9 Cardiomyopathy, unspecified; I50.22 Chronic systolic (congestive) heart failure; I48.11 Longstanding persistent atrial fibrillation; D68.9 Coagulation defect, unspecified; I13.0 Hypertensive heart and chronic kidney disease with heart failure and stage 1 through stage 4 chronic kidney disease, or unspecified chronic kidney disease; I95.2 Hypotension due to drugs; E80.6 Other disorders of bilirubin metabolism; N18.30 Chronic kidney disease, stage 3 unspecified; I25.10 Atherosclerotic heart disease of native coronary artery without angina pectoris; I49.5 Sick sinus syndrome; I27.20 Pulmonary hypertension, unspecified; K76.1 Chronic passive congestion of liver; K72.90 Hepatic failure, unspecified without coma; E78.00 Pure hypercholesterolemia, unspecified; D69.6 Thrombocytopenia, unspecified; K80.80 Other cholelithiasis without obstruction; E66.9 Obesity, unspecified; I08.0 Rheumatic disorders of both mitral and aortic valves; T45.515A Adverse effect of anticoagulants, initial encounter; Z20.822 Contact with and (suspected) exposure to COVID-19; E11.22 Type 2 diabetes mellitus with diabetic chronic kidney disease; Y92.89 Other specified places as the place of occurrence of the external cause; Z90.49 Acquired absence of other specified parts of digestive tract; Z79.4 Long term (current) use of insulin; I25.2 Old myocardial infarction; Z88.8 Allergy status to other drugs, medicaments and biological substances; Z82.49 Family history of ischemic heart disease and other diseases of the circulatory system; Z95.1 Presence of aortocoronary bypass graft; Z68.35 Body mass index [BMI] 35.0-35.9, adult; Z83.3 Family history of diabetes mellitus; W01.0XXA Fall on same level from slipping, tripping and stumbling without subsequent striking against object, initial encounter; Y93.89 Activity, other specified; Y99.8 Other external cause status

== ENCOUNTER 2020-12-29 08:05 | Inpatient (IN) | payer OTHER ==
[~2020-12-29] VITALS: Ht 190.5 cm; Wt 104.8 kg
[~2020-12-29 08:05] MED LIST changes: +BENAZEPRIL HCL20 MG PO; +IMBRUVICA140 MG PO; +LASIX 40 MG TAB40 MG PO
[2020-12-29 08:31] VITALS: BP 116/72
[2020-12-29 08:51] LABS: ABSOLUTE LYMPHOCYTES 3.7 thou/uL (0.8-5.3); ABSOLUTE MONOCYTES 0.6 thou/uL (0.0-1.2); ABSOLUTE NEUTROPHILS 12.6 thou/uL (1.6-8.1); BASOPHILS 0.2 %; HEMATOCRIT 34.7 % (42.0-52.0); HEMOGLOBIN 11.4 gm/dL (14.0-18.0); LYMPHOCYTES 21.9 %; MCH 30.6 pg (26.0-34.0); MCHC 32.7 g/dL (28.0-37.0); MCV 93.7 fL (80.0-100.0); MONOCYTES 3.7 %; MPV 10.2 fl. (7.2-11.1); NUCLEATED RBCS 0 /100WBC; PLATELET COUNT* 185 thou/uL (150-400); POLYS 74.2 %; RBC 3.71 mil/uL (4.50-6.00); RDW-CV 15.9 % (10.5-14.5)
[2020-12-29 08:56] LABS: CALCIUM 8.4 mg/dL (8.5-10.1); CREATININE 1.6 mg/dL (0.6-1.3); POTASSIUM 4.1 mmol/L (3.5-5.1)
--- NOTE | 2020-12-29 08:57 | NUR ---
SPOKE WITH (KATINA), PT RX'D LASIX 40MG 1 PO BID & POTASSIUM 10 MEQ 1 PO BID. LAST KNOWN NORMAL THIS AM 0600. PT HAS INTERMITTENT ALTERED MENTAL STATUS WITH DIFFICULTY SPEAKING & FOLLOWING DIRECTIONS R/T PAST "POSSIBLE STROKES". STATES HAVING DIFFICULTY WITH PT TIMELINE.
[2020-12-29] MEDS ORDERED: VITAMIN D310 MC2 PO (09:05)
[2020-12-29 09:06] LABS: ALBUMIN 2.9 g/dL (3.4-5.0); TOTAL BILIRUBIN 2.2 mg/dL (<0.1-1.0); TOTAL PROTEIN 5.7 g/dL (6.4-8.2)
[2020-12-29 11:01] LABS: URINE BILIRUBIN NEGATIVE (Negative); URINE BLOOD NEGATIVE (Negative); URINE CLARITY CLEAR; URINE COLOR YELLOW; URINE GLUCOSE-RANDOM NEGATIVE (Negative); URINE KETONES NEGATIVE (Negative); URINE LEUKOCYTES-REFLEX NEGATIVE (Negative); URINE NITRITE-REFLEX NEGATIVE (Negative); URINE PROTEIN NEGATIVE (Negative); URINE SPECIFIC GRAVITY 1.025 (1.005-1.030); URINE UROBILINOGEN 0.2 E.U./dl (0.2-1.0)
--- NOTE | 2020-12-29 14:34 | EKG ---
[place] [address] ELECTROCARDIOGRAM REPORT Name: CASTROJER YG Room: [place] [address] ADM IN .R.#: [id number] Admission: 12/29/20 Attend Phys: Alejo Crocker Discharge: Date of : 52 Date of Service: 12/29/20 0843 Report #: [id number] THIS REPORT FOR: //name// [facility] ED Test Date: 2020-12-29 Test Time: 08:43:35 Pat Name: JER CASTRO Department: Room: [facility] Gender: M Irrigation Engineer: KEAGAN : 1950 Requested By: Lorenzo Shaw Order Number: [id number] MD: Chan Mcfarland Measurements Intervals [place] Rate: 70 P: 212 AL: 160 QRS: 268 QRSD: 227 T: 94 QT: 582 QTc: 629 Interpretive Statements Ventricular-paced complexes No further analysis attempted due to paced rhythm Compared to ECG 06/20/2020 09:39:59 paced beats now noted Electronically Signed On 12-29-2020 14:33:49 CDT by Chan Mcfarland [email or web address] <ELECTRONICALLY SIGNED> By: Chan Mcfarland MD, [facility] 12/29/20 1433 0843 0843 Chan Mcfarland MD, [facility] /EPI
--- NOTE | 2020-12-29 14:56 | CON ---
[address] [address] CONSULTATION Name: JER CASTRO Room: [place] [address] ADM IN Alyssa.Sae.#: [id number] Admission: 12/29/20 Attend Phys: Parker Oh Discharge: Date of : 52 Report #: [id number] THIS REPORT FOR: cc: FAM - No family physician/PCP FAM - No family physician/PCP Chan Mcfarland MD [facility] ~ DATE OF CONSULTATION: 12/29/2020 CARDIOLOGY CONSULTATION HISTORY OF PRESENT ILLNESS: The patient is a 70-year-old white male who I was asked to see in the Emergency Room today after he was noted to have an abnormal troponin. The patient apparently had coronary artery bypass surgery at [facility] years ago. He has a history of permanent atrial fibrillation, has been chronically anticoagulated. He had a previous pacemaker inserted for slow rates. The patient is not very active because of chronic disease. He has fallen in the past. He has had several hospitalizations here at [facility]. He was admitted here in 2016 with pleural effusion. He was admitted here in 2019 with confusion, pneumonia, sepsis, chronic kidney disease. The patient was last admitted in June of this year after he fell and fractured his back. The patient states he was recently admitted to [facility]. He was brought to the Emergency Room this morning by his after he had fallen and could not get up. He was very weak and confused. He denies any recent chest pain, shortness of breath, syncope. He denies any fever, cough, bleeding. PAST MEDICAL HISTORY: He has had previous appendectomy. He has a history of diabetes, hypertension, chronic kidney disease, CLL. He has been chronically anticoagulated. CURRENT MEDICATION LIST: Includes insulin, Lotensin, Crestor, spironolactone, chemotherapy pill for his CLL. ALLERGIES: HE HAS A PREVIOUS INTOLERANCE TO NIFEDIPINE. FAMILY HISTORY: His brother had coronary stent placed. 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 He uses a walker. No smoking, alcohol abuse. REVIEW OF SYSTEMS: He is overweight being 6 feet 3 inches, 280 pounds. No history of stroke, asthma, liver disease. He has chronic kidney disease. No chronic skin condition. He does have CLL. No psychiatric illness. He has a history of dementia. PHYSICAL EXAMINATION: [place] [address] CONSULTATION Name: JER CASTRO Room: [address]#: [id number] Admission: 12/29/20 Attend Phys: Parker Oh Discharge: Date of : 52 Report #: [id number] GENERAL: Revealed an overweight elderly male, lying in bed, appeared in no distress. VITAL SIGNS: Blood pressure 116/70, pulse 70, he was afebrile. HEENT: He was anicteric. Conjunctivae pink. Mucous membranes moist. NECK: Veins not appear distended. No carotid bruits. CHEST: Clear to auscultation. CARDIAC: Regular rate and a grade 4 systolic ejection murmur at left sternal border. ABDOMEN: Obese. EXTREMITIES: Had pitting edema up to the mid tibial area. SKIN: Cool and dry. NEUROLOGIC: He was able to move all extremities. LABORATORY DATA: His ECG shows what appears to represent atrial fibrillation with a ventricular paced rhythm. His workup, he actually had an echocardiogram done in June of this year that showed ejection fraction only 25%, biatrial enlargement. There was evidence of aortic stenosis with a peak gradient across the aortic valve of 28 mmHg. His workup in the Emergency Room today, he had a portable chest that showed mild vascular congestion, small effusion. He had a CT scan of the head that showed atrophy, no acute changes. His lab work, sodium 135, BUN 24, creatinine 1.6, it has been as high as 2.0 in the past. His liver function studies were normal. His high sensitivity troponin was 85, repeat was 89. BNP 15,688. His white blood cell count 17.0, hemoglobin 11.4. IMPRESSION AND RECOMMENDATIONS: 1. Confusion. Suspect encephalopathy. 2. Atrial fibrillation. The patient has been chronically anticoagulated. 3. Previous coronary artery bypass surgery. Borderline troponin. No history of angina. Recommend conservative approach. I did not feel the patient has acute myocardial infarction. 4. Hypertension. The patient has been on a beta grayson and angiotensin-converting enzyme inhibitor. 5. Diabetes. 6. Mild aortic stenosis. 7. Hyperlipidemia. The patient has been on a statin drug in the past. 8. Sick sinus syndrome. The patient is ventricular paced. 9. Chronic lymphocytic leukemia. The patient on oral chemotherapy. 10. Obesity. <ELECTRONICALLY SIGNED> By: Chan Mcfarland MD, [facility] 12/29/20 1456 1050 [id number] Mcfarland MD, [facility] /nt
[2020-12-29 15:00] VITALS: BP 98/64
[2020-12-29 16:30] VITALS: BP 110/67
[2020-12-29 20:00] VITALS: BP 92/66
[2020-12-30] VITALS (7 sets, daily range): BP systolic 94–109; BP diastolic 60–74
[2020-12-30 05:05] LABS: HEMATOCRIT 30.3 % (42.0-52.0); HEMOGLOBIN 10.4 gm/dL (14.0-18.0); MCH 31.8 pg (26.0-34.0); MCHC 34.2 g/dL (28.0-37.0); RBC 3.26 mil/uL (4.50-6.00); RDW-CV 15.8 % (10.5-14.5); WBC 8.9 thou/uL (4.0-11.0)
[2020-12-30 05:33] LABS: CALCIUM 8.4 mg/dL (8.5-10.1); CREATININE 1.4 mg/dL (0.6-1.3); POTASSIUM 3.6 mmol/L (3.5-5.1)
[2020-12-31 02:13] VITALS: BP 97/63
--- NOTE | 2020-12-31 05:04 | NUR ---
PATIENT HAS REMAINED ORIENTED X 4, SLEEPY. COOPERATIVE WITH CARES AND TURNS. BLE ELEVATED ON PILLOWS. DENIES PAIN. MEDS PER ORDER WITH EXCEPTION OF INUSLIN WHICH WAS REFUSED PATIENT IS EATING VERY POORLY. HS BLOOD SUGAR THE LOWEST IT HAS BEEN AT 134 SINCE AM. REFUSED HS SNACK. VITAL SIGNS STABLE. CONTINUE TO MONITOR.
[2020-12-31 05:16] VITALS: BP 93/63
[2020-12-31 09:00] VITALS: BP 97/59
[2020-12-31 12:32] VITALS: BP 99/61
[2020-12-31 16:40] VITALS: BP 129/85
[2020-12-31 20:00] VITALS: BP 90/56
[2021-01-01] VITALS (7 sets, daily range): BP systolic 70–120; BP diastolic 46–77
--- NOTE | 2021-01-01 05:10 | NUR ---
PATIENT HAS REMAINED ALERT AND ORIENTED X 2-3, FORGETFUL AND AT TIMES CONVERSATION FRAGMENTED. RESTING AT INTERVALS ON HOURLY ROUNDS. FALL PRECAUTIONS IN PLACE. ADEQUATE URINE OUTPUT PER CURRIE. IMPROVEMENT IN LE EDEMA. PATIENT HAD NOT BEEN TAKING HS LANTUS INSULIN PREVIOUS NIGHTS. DID TAKE LAST NIGHT. BLOOD SUGAR CHECKS AT HS, 0055 AND 0424 FOLLOWS: 149,119 AND 111. V-PACED ON THE MONITOR WITH VITAL SIGNS STABLE. CONTINUE TO MONITOR.
--- NOTE | 2021-01-01 09:11 | NUR ---
CM COMPLETED INITIAL ASSESSMENT TO DISCUSS HOME SITUATION AND MED HX. PT LIVES IN HOME WITH . PT HAS WALKER. PT HAS HX WITH [facility] IN JUN 2020. PT BELIEVES HE WILL BENEFIT FROM HH AT [place]. PT IS INDEPENDENT WITH ADLS. PT IS ACTIVE, AEB "I WANT TO GO HOME AND KEEP WORKING OUT AT HOME." CM FAXED REFERRAL TO [facility].
[2021-01-02 00:32] VITALS: BP 120/81
[2021-01-02 05:03] VITALS: BP 83/53
--- NOTE | 2021-01-02 05:52 | NUR ---
PATIENT SLEPT WELL DURING THIS SHIFT. PT V-PACED ON SPEECH LANGUAGE PATHOLOGY ASSISTANT. PT DENIES PAIN/NAUSEA. PT ON ROOM AIR. PT WITH CURRIE TO DEPENDENT DRAIN, YELLOW URINE. PT REPOSITIONED Q2H PER PROTOCAL. PT DENIES NEEDS AT THIS TIME. FREQUENTLY USED ITEMS AND CALL LIGHT WITHIN REACH. SIDERAILS UP X3 AND BED ALARM ON. WILL CONTINUE TO MONITOR.
[2021-01-02 08:00] VITALS: BP 92/62
[2021-01-02] MEDS ORDERED: SPIRONOLACTONE25 MG PO (11:35)
[2021-01-02] MEDS ORDERED: HYDROCODON-ACE1 EAC7 PO (11:35)
[2021-01-02] MEDS ORDERED: DOXYCYCLINE 10100 MG PO (11:35)
[2021-01-02] MEDS ORDERED: LASIX 40 MG TAB40 MG PO (11:35)
[2021-01-02] MEDS ORDERED: COREG3.125 MG PO (11:45)
[2021-01-02 12:05] VITALS: BP 90/40
[2021-01-02 12:19] LABS: CALCIUM 8.5 mg/dL (8.5-10.1); CREATININE 1.5 mg/dL (0.6-1.3); POTASSIUM 3.6 mmol/L (3.5-5.1)
--- NOTE | 2021-01-02 15:40 | NUR ---
NIKA DISCUSSED D/C PLANNING WITH PT AND HIS , D/C ORDERS ARE FOR HH AND PT BEDSIDE RN INFORMED CM PT CALLED INQUIRING ABOUT SNF. BOTH, PT AND HIS AGREED THAT THEY WANTED PT TO RTRN HOME WITH HH. BORIS WITH [facility] WILL ACCEPT PT. PT IS ON [facility]'S SCHEDULE FOR FRIDAY. NIKA NOTIFIED PT OF THIS AND INFORMED PT [facility] WILL CONTACT HIM AT HOME TO ARRANGE VISIT. PT CM FAXED ORDERS TO [facility] [phone]. NIKA ARRANGED [facility] FOR PT PT IS 'DISABLED' AND UNABLE TO DRIVE. MERRY WITH [facility] CONFIRMED [phone] PICKUP TIME. RN NOTIFED. TRACKING # [id number]. [facility] [employer] APPROVED PT FOR WALKER. ARLYN, PT, PROVIDED WALKER. ORDER PLACED ON PT'S CHART.
[2021-01-02 16:13] VITALS: BP 90/40
--- NOTE | 2021-01-02 16:27 | 2DMMODE ---
[place] [address] 2 D/M-MODE ECHOCARDIOGRAM Name: GLORIAJER RONQUILLO Room: [address] IN [place]#: [id number] Admission: 12/29/20 Attend Phys: Alejo Crocker Discharge: Date of : 52 Date of Service: 01/02/21 1627 Report #: [id number] THIS REPORT FOR: cc: FAM - No family physician/PCP FAM - No family physician/PCP Chan Mcfarland MD [facility] ~ APPROVED REPORT Study performed: 01/02/2021 13:51:16 EXAM: Comprehensive 2D, Doppler, and color-flow Echocardiogram Patient Location: In-Patient Room #: 209 Status: routine BSA: 2.33 HR: 70 bpm BP: 90/40 mmHg Rhythm: NSR Other Information Study Quality: Good Indications Congestive Heart Failure 2D Dimensions IVSd: 14.11 (7-11mm) LVOT Diam: 24.89 (18-24mm) LVDd: 62.49 mm PWd: 12.25 (7-11mm) Ascending Ao: 37.26 (22-36mm) LVDs: 55.75 (25-40mm) Volumes Left Atrial Volume (Systole) LA ESV Index: 79.50 mL/m2 Aortic Valve AoV Peak Joel.: 3.21 m/s AO Peak Gr.: 41.12 mmHg LVOT Max P.79 mmHg AO Mean Gr.: 25.06 mmHg LVOT Mean P.75 mmHg LVOT Max V: 0.67 m/s AO V2 VTI: 62.94 cm LVOT Mean V: 0.39 m/s ERIN (VTI): 0.94 cm2 LVOT V1 VTI: 12.17 [place] [address] 2 D/M-MODE ECHOCARDIOGRAM Name: JER CASTRO Room: [address] IN ..#: [id number] Admission: 12/29/20 Attend Phys: Alejo Crocker Discharge: Date of : 52 Date of Service: 01/02/21 1627 Report #: [id number] E/A Ratio: 2.68 MV Decel. Time: 207.65 ms MV E Max Joel.: 0.83 m/s MV PHT: 60.22 ms MVA (PHT): 3.65 cm2 TDI E/Lateral E': 6.92 Lateral E' Joel.: 0.12 m/s Pulmonary Valve PV Peak Joel.: 0.87 m/s PV Peak Gr.: 3.05 mmHg Tricuspid Valve RAP Estimate: 5.00 mmHg TR Peak Gr.: 32.41 mmHg RVSP: 37.00 mmHg PA Pressure: 37.00 mmHg Left Ventricle Left ventricle is moderately dilated. There is global hypokinesis of the left ventricle. Mild concentric left ventricular hypertrophy. Left ventricular systolic function is severely decreased. LVEF is 15-20%. Grade IV - fixed restrictive diastolic dysfunction. Right Ventricle Right ventricle is dilated. The right ventricular systolic function is normal. Pacemaker lead is present in the right ventricle. Atria Left atrium is severely dilated. Right atrium is dilated. Aortic Valve Aortic valve is calcified. No aortic regurgitation is present. Severe aortic stenosis. Mitral Valve The mitral valve is normal in structure. Mild mitral regurgitation. No evidence of mitral valve stenosis. Tricuspid Valve The tricuspid valve is normal in structure. Mild tricuspid regurgitation. estimated pa pressure 40 mm Hg Pulmonic Valve The pulmonary valve is normal in structure. Mild [place] [address] 2 D/M-MODE ECHOCARDIOGRAM Name: JER CASTRO Room: [address] IN [facility]#: [id number] Admission: 12/29/20 Attend Phys: Alejo Crocker Discharge: Date of : 52 Date of Service: 01/02/21 1627 Report #: [id number] Great Vessels The aortic root is normal in size. IVC is normal in size and collapses >50% with inspiration. Pericardium There is no pericardial effusion. <Conclusion> Left ventricle is moderately dilated. Mild concentric left ventricular hypertrophy. LVEF is 15-20%. Left atrium is severely dilated. Severe aortic stenosis. Mild mitral regurgitation. Mild tricuspid regurgitation. estimated pa pressure 40 mm Hg <ELECTRONICALLY SIGNED> By: Chan Mcfarland MD, [facility] 01/02/21 162 26 26 Chan Mcfarland MD, FACC /INF
--- NOTE | 2021-01-02 16:44 | NUR ---
CM FAXED WALKER ORDER TO [facility] WITH [employer]. [phone]. ALSO PLACED COPY IN PT'S CHART.
--- NOTE | 2021-01-02 17:57 | NUR ---
patient dischaged instruction completed . including all discharge medications , IV removed before discharged , no issue voiced .
== END 2021-01-02 18:42 | disposition home health service (06) | DRG 602 ==
LOC: M.ERS 08:05 → M.TBA-ER 10:05 → M.2W 10:05
PROVIDERS: Emergency Medicine Emergency Medical Services; Family Medicine; ADMIT Internal Medicine; ATTEND Internal Medicine
DX: L03.116 Cellulitis of left lower limb (principal); G93.41 Metabolic encephalopathy; I50.23 Acute on chronic systolic (congestive) heart failure; R65.11 Systemic inflammatory response syndrome (SIRS) of non-infectious origin with acute organ dysfunction; C91.10 Chronic lymphocytic leukemia of B-cell type not having achieved remission; I48.21 Permanent atrial fibrillation; I13.0 Hypertensive heart and chronic kidney disease with heart failure and stage 1 through stage 4 chronic kidney disease, or unspecified chronic kidney disease; E66.9 Obesity, unspecified; I49.5 Sick sinus syndrome; I35.0 Nonrheumatic aortic (valve) stenosis; E78.5 Hyperlipidemia, unspecified; N18.30 Chronic kidney disease, stage 3 unspecified; E11.22 Type 2 diabetes mellitus with diabetic chronic kidney disease; I27.20 Pulmonary hypertension, unspecified; Z20.822 Contact with and (suspected) exposure to COVID-19; Z95.1 Presence of aortocoronary bypass graft; Z68.28 Body mass index [BMI] 28.0-28.9, adult; Z88.8 Allergy status to other drugs, medicaments and biological substances; Z90.49 Acquired absence of other specified parts of digestive tract; Z95.5 Presence of coronary angioplasty implant and graft

== ENCOUNTER 2021-05-21 08:50 | Inpatient (IN) | payer OTHER ==
[~2021-05-21] VITALS: Ht 188 cm; Wt 111.6 kg
--- NOTE | ~2021-05-21 | CON ---
[address] [address] CONSULTATION Name: JER CASTRO Room: [place] [address] ADM IN M.R.#: [id number] Admission: 05/21/21 Attend Phys: Jami Pacheco MD Discharge: Date of : 52 Report #: [id number] THIS REPORT FOR: cc: FAM - No family physician/PCP FAM - No family physician/PCP Lauren Cook MD ~ DATE OF CONSULTATION: 05/23/2021 The patient does not have a PCP. Please note at the time of this dictation, the patient was seen and physically examined by myself. REASON FOR CONSULTATION: Anemia. HISTORY OF PRESENT ILLNESS: This is a 70-year-old male who presented to the Emergency Room with having significant weakness on the day of admission in which his said he could not get out of the chair because he was so weak. He had no other complaints noted at that time. The patient is unclear if he has ever had an EGD or a colonoscopy, he said if he has ever had one it has been many years ago. He has nothing recollection in our system or in [place] system at the present time. The patient states he denies any difficulty swallowing, acid reflux, any abdominal pain. He states his bowels move fairly normal on a daily basis. He states he has not noticed any bright red blood or any black in his stool. He states that he has never been told that he has cirrhosis before. ALLERGIES: NIFEDIPINE AND LASIX. MEDICATIONS FROM HOME: Coreg and hydrocodone, Eliquis, Crestor, spironolactone, Invokana, vitamin D, and insulin. PAST MEDICAL HISTORY: Diabetes, anticoagulant therapy, hyperlipidemia, atrial fibrillation. The patient is a very poor historian regarding his current status. He has had lymphoma, leukemia, history of pneumonia, cardiomyopathy, CAD, diabetes, congestive heart failure. PAST SURGICAL HISTORY: Negative. FAMILY HISTORY: Noncontributory. SOCIAL HISTORY: The patient denies any alcohol, tobacco or illegal drug use. REVIEW OF SYSTEMS: Twelve-point review of [place] [address] CONSULTATION Name: GLORIAJERSHABANA RONQUILLO Room: [address] IN [facility]#: [id number] Admission: 05/21/21 Attend Phys: Jami Pacheco MD Discharge: Date of : 52 Report #: [id number] except what is mentioned in the HPI. PHYSICAL EXAMINATION: VITAL SIGNS: Temperature 36.1, pulse 73, respirations 17, blood pressure 103/67. HEART: Regular rate and rhythm. LUNGS: Diminished, but clear. ABDOMEN: Soft, positive bowel sounds in all 4 quadrants with no masses or tenderness noted. EXTREMITIES: Lower extremities do show some edema. LABORATORY DATA: On admission, total bilirubin was 3.4, it is down to 1.2; alkaline phosphatase was 183, it is down to 140; ALT was 18, is 16; AST was 15, it is down to 16. Hemoglobin was 11.7, white count was 8.8, platelets were 98. GFR is 31. BUN is 46, creatinine is 2.1. He had an ultrasound of the abdomen that showed an enlarged spleen of 16.2 showed a fatty enlarged liver with abnormal portal vein waveform with portal hypertension, some ascites, pleural fluid, extensive material noted in the gallbladder, possible sludge or debris, a mass cannot be excluded and splenomegaly. CT scan of the abdomen and pelvis showed nodularity of the liver, underlying cirrhosis, hyperdense sludge and gallstones within the dependent aspect of the gallbladder moderately distended, no splenic mass, no stranding noted. Distal esophagus and stomach are unremarkable. Cardiomegaly noted, otherwise normal. IMPRESSION: 1. Anemia, very mild. 2. Cirrhosis newly diagnosed per patient. 3. Thrombocytopenia. 4. Transaminitis. 5. Anticoagulant Eliquis, atrial fibrillation. 6. Chronic kidney disease. 7. Chronic lymphocytic leukemia. 8. Coronary artery disease, history of myocardial infarction. PLAN: 1. EGD tomorrow for surveillance for varices. 2. Acute hepatitis panel, AFP, alpha trypsin 1, SATHYA, ASMA, AMA, seroma plasma, GGTP, IgA, IgG, IgM immunoglobulins, GGTP. 3. We will obtain an ultrasound of the abdomen with Dopplers due to the abnormal portal vein flow. 4. We will hold his Eliquis. 5. Further recommendations to be made after Dr. Cook sees the [place] [address] CONSULTATION Name: GLORIAJER YG Room: [place] [address] ADM IN [facility]#: [id number] Admission: 05/21/21 Attend Phys: Jami Pacheco MD Discharge: Date of : 52 Report #: [id number] Thank you for allowing us to participate in this patient's care. Please do not hesitate to call with any questions regarding this consult. By: [id number] 1916Lauren Cook MD /tessa
--- NOTE | ~2021-05-21 | PROC ---
[address] [address] PROCEDURE REPORT Name: JER CASTRO Room: [address] IN .R.#: [id number] Admission: 05/21/21 Attend Phys: Jami Pacheco MD Discharge: Date of : 52 Report #: [id number] THIS REPORT FOR: cc: FAM - No family physician/PCP FAM - No family physician/PCP [facility],Medical Records Staff ~ For GI report, please see Provation report in Perceptive 7 content. By: [id number] Records Staff ROSE /KELVIN
[~2021-05-21 08:50] MED LIST changes: +COREG3.125 MG PO; +HYDROCODON-ACE1 EAC7 PO; +SPIRONOLACTONE25 MG PO; +VITAMIN D310 MC2 PO
[2021-05-21 08:52] VITALS: BP 112/86
[2021-05-21 09:30] LABS: ABSOLUTE BASOPHILS 0.1 thou/uL (0.0-0.2); ABSOLUTE LYMPHOCYTES 2.5 thou/uL (0.8-5.3); ABSOLUTE MONOCYTES 0.2 thou/uL (0.0-1.2); ABSOLUTE NEUTROPHILS 7.3 thou/uL (1.6-8.1); BASOPHILS 0.7 %; HEMATOCRIT 40.5 % (42.0-52.0); HEMOGLOBIN 13.4 gm/dL (14.0-18.0); LYMPHOCYTES 24.5 %; MCH 30.3 pg (26.0-34.0); MCHC 33.1 g/dL (28.0-37.0); MCV 91.7 fL (80.0-100.0); MONOCYTES 2.3 %; MPV 9.4 fl. (7.2-11.1); NUCLEATED RBCS 0 /100WBC; PLATELET COUNT* 117 thou/uL (150-400); POLYS 72.5 %; RBC 4.42 mil/uL (4.50-6.00); RDW-CV 15.6 % (10.5-14.5); WBC 10.1 thou/uL (4.0-11.0)
[2021-05-21 09:46] LABS: ANION GAP 10 mmol/L (7-16); BUN 30 mg/dL (7-18); CALCIUM 8.9 mg/dL (8.5-10.1); CHLORIDE 100 mmol/L (98-107); CO2 29 mmol/L (21-32); GLUCOSE 160 mg/dL (70-99); POTASSIUM 3.7 mmol/L (3.5-5.1); SODIUM 139 mmol/L (136-145)
[2021-05-21 09:57] LABS: ALBUMIN 3.5 g/dL (3.4-5.0); ALKALINE PHOSPHATASE 183 U/L (46-116); NT-PRO BRAIN NAT PEPTIDE > 35000 pg/mL (<300); SGOT 15 U/L (15-37); SGPT 18 U/L (30-65); TOTAL BILIRUBIN 3.4 mg/dL (<0.1-1.0); TOTAL PROTEIN 6.4 g/dL (6.4-8.2)
[2021-05-21] MEDS ORDERED: ELIQUIS5 MG PO (10:17)
--- NOTE | 2021-05-21 13:48 | NUR ---
CALLED PT'S AT THIS TIME INFORMED HER PT WILL BE ADMITTED. INFORMED HER WE DON'T HAVE A ROOM YET.
--- NOTE | 2021-05-21 13:51 | EKG ---
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 : 1950 Requested By: Geoff Wood Order Number: [id number] MD: Chan Mcfarland Measurements Intervals [place] Rate: 108 P: -38 GA: 199 QRS: 0 QRSD: 222 T: 259 QT: 358 QTc: 480 Interpretive Statements Ventricular-paced complexes No further analysis attempted due to paced rhythm Baseline wander in lead(s) V1,V5 Compared to ECG 12/29/2020 08:43:35 No significant changes Electronically Signed On 05-21-2021 13:51:00 CABLE TECHNICIAN by Chan Mcfarland [email or web address] <ELECTRONICALLY SIGNED> By: Chan Mcfarland MD, FACC 05/21/21 1351 8 8 Chan Mcfarland MD, FAC /EPI
[2021-05-21 15:15] LABS: BE -1.5 mmol/L (-2 to +3); PCO2 41.7 mmHg (35.0-45.0); pH 7.373 (7.340-7.450)
[2021-05-21 15:17] LABS: PO2 33.2 mmHg (75.0-100.0)
[2021-05-21 16:08] VITALS: BP 94/64
[2021-05-22] VITALS (7 sets, daily range): BP systolic 83–110; BP diastolic 59–81
--- NOTE | 2021-05-22 04:48 | NUR ---
PT ADMITTED FROM ER. KEEPING EYES CLOSED BUT ABLE TO STATE HIS NAME WHEN ASKED. WHEN ENTERING ROOM TO PT CHECK HE WOULD ASK WHEN IS BREAKFAST OR CAN I HAVE A WARM BLANKET BUT IMMEDIATELY WOULD CLOSE HIS EYES AGAIN. PLEASANT AND COOPERATIVE. BRENDA LOWER LEGS RED AND 4+ EDEMA, WEEPING. ELEVATED ON PILLOWS. LT GREAT TOE NOTED TO HAVE MOIST ESCAR TISSUE. OPEN AREA TO BUTTOCKS. GROIN VERY ESCORIATED AND YEAST LIKE. PUT ON CONDOM CATH DUE TO INCONT. O2 ON AT 4L/NC, NO SOA NOTED. TELEMETRY ON SHOWING VPACED RHYTHM. ABLE TO DRINK THROUGH STRAW WITHOUT COUGHING OR CHOKING.
[2021-05-22 05:38] LABS: HEMATOCRIT 36.2 % (42.0-52.0); HEMOGLOBIN 11.7 gm/dL (14.0-18.0); MCH 29.9 pg (26.0-34.0); MCHC 32.3 g/dL (28.0-37.0); MCV 92.6 fL (80.0-100.0); MPV 9.2 fl. (7.2-11.1); RBC 3.91 mil/uL (4.50-6.00); RDW-CV 15.9 % (10.5-14.5); WBC 6.9 thou/uL (4.0-11.0)
[2021-05-22 05:50] LABS: ALBUMIN 2.8 g/dL (3.4-5.0); CALCIUM 8.5 mg/dL (8.5-10.1); MAGNESIUM 2.2 mg/dL (1.8-2.4); POTASSIUM 3.8 mmol/L (3.5-5.1); TOTAL PROTEIN 5.5 g/dL (6.4-8.2)
[2021-05-22 13:41] LABS: URINE BILIRUBIN NEGATIVE (Negative); URINE BLOOD TRACE (Negative); URINE CLARITY CLEAR; URINE COLOR YELLOW; URINE GLUCOSE-RANDOM NEGATIVE (Negative); URINE KETONES NEGATIVE (Negative); URINE LEUKOCYTES-REFLEX NEGATIVE (Negative); URINE NITRITE-REFLEX NEGATIVE (Negative); URINE PROTEIN 1+ (Negative); URINE SPECIFIC GRAVITY >= 1.030 (1.005-1.030); URINE UROBILINOGEN 0.2 E.U./dl (0.2-1.0)
--- NOTE | 2021-05-22 13:41 | NUR ---
WOUND CARE: CONRADO SEEN TO ADDRESS MULTIPLE WOUNDS. WOUND ONE IS ON LEFT GREAT TOE AND MEASURES 1 X 1 CM NO DEPTH, IT IS STABLE ESCHAR. BETADINE PAINT AND LEFT OPEN TO AIR, WOUND 2) STAGE 2 PRESSURE ULCER TO LEFT BUTTOCK MEASUREING 1 X 0.7 X 0.2 CM. 100% RED GRANULATION TISSUE. ELYSSA WOUND NORMAL FOR SKIN, BORDER FOAM APPLIED. BILATERAL LOWER EXTREMITY NOTED TO HAVE 4+ PITTING EDEMA. BIALTERAL TUBGRIP SIZE E APPLIED TOES TO KNEE. TOLERATED WELL. EDUCATION ON EDEMA CONTROLL, AND WOUND HEALING COMPLETED. DENIES OTHER NEEDS AT THIS TIME. REPORT GIVEN TO PRIMARY NURSING
[2021-05-23] VITALS: BP 109/79
[2021-05-23 04:32] VITALS: BP 99/79
[2021-05-23 04:53] LABS: HEMATOCRIT 36.5 % (42.0-52.0); HEMOGLOBIN 11.7 gm/dL (14.0-18.0); MCH 30.2 pg (26.0-34.0); MCHC 32.1 g/dL (28.0-37.0); MCV 93.9 fL (80.0-100.0); MPV 9.5 fl. (7.2-11.1); RBC 3.89 mil/uL (4.50-6.00); WBC 8.8 thou/uL (4.0-11.0)
[2021-05-23 05:29] LABS: ALBUMIN 2.8 g/dL (3.4-5.0); CALCIUM 8.7 mg/dL (8.5-10.1); CREATININE 2.1 mg/dL (0.6-1.3); MAGNESIUM 2.4 mg/dL (1.8-2.4); POTASSIUM 4.3 mmol/L (3.5-5.1); TOTAL BILIRUBIN 1.2 mg/dL (<0.1-1.0); TOTAL PROTEIN 5.6 g/dL (6.4-8.2)
--- NOTE | 2021-05-23 06:27 | NUR ---
PATIENT AWAKE OFF AND ON DURING THIS SHIFT. PT UP TO RECLINER WITH ASSIST OF TWO, G.BELT AND WALKER. PT VERY UNSTEADY ON HIS FEET WHILE PIVOTING FROM BED TO CHAIR. FEET WERE ELEVATED. PT WANTED BACK TO BED AFTER ONE HOUR. BED POPCORN VENDOR PROVIDED TO END OF BED HOWEVER CONNECTOR AT END OF BED NOT WORKING AND PT AGREED TO USE HIS CALL LIGHT AND FOUR SIDERAILS UP. TUBIGRIP REARRANGED ON LOWER EXTREMITIES SEVERAL TIMES PER PT REQUEST. EXTREMELY TIGHT AT BEND OF KNEE AND THIS PART WAS CUT OFF. PT REFUSED TO KEEP YELLOW SOCK ON LT FOOT. PT REFUSED PAIN MEDICATION. PT ON O2 @ 4LITERS PER NASAL CANNULA. PT TAKES PILLS ONE AT A TIME. FREQUENTLY USED ITEMS AND CALL LIGHT WITHIN REACH. SIDERAILS UPX4. WILL CONTINUE TO MONITOR.
[2021-05-23 09:00] VITALS: BP 107/74
--- NOTE | 2021-05-23 10:09 | NUR ---
CM ASSESSMENT: PT A&O, AND NORMALLY INDEPENDENT WITH ADL'S. PT RESIDES AT HOME WITH SPOUSE. PT USES WALKER FOR MOBILITY. NO OTHER DME. PT HAS PAST HX OF HH AND SNF. PT CURRENTLY ON 3L O2 WITH PLAN TO WEAN PT OFF O2. CM D/C PLANNING NEEDS TBD, BUT PT MAY BENEFIT FROM HH AT D/C. CM WILL REMAIN AVAILABLE TO ASSIST AND FOLLOW NEEDED.
[2021-05-23 12:00] VITALS: BP 103/67
--- NOTE | 2021-05-23 12:47 | 2DMMODE ---
[place] [address] 2 D/M-MODE ECHOCARDIOGRAM Name: GLORIAJER RONQUILLO Room: [place] [address] ADM IN [place]#: [id number] Admission: 05/21/21 Attend Phys: Jami Pacheco, Discharge: Date of : 52 Date of Service: 05/23/21 1247 Report #: [id number] THIS REPORT FOR: cc: FAM - No family physician/PCP FAM - No family physician/PCP Chan Mcfarland MD [facility] ~ ADDENDUM APPROVED REPORT Study performed: 05/23/2021 11:53:17 EXAM: Comprehensive 2D, Doppler, and color-flow Echocardiogram Patient Location: In-Patient Room #: [facility] Status: routine BSA: 2.37 HR: 70 bpm BP: 99/79 mmHg Rhythm: NSR Other Information Study Quality: Excellent Indications Cardiomegaly 2D Dimensions IVSd: 14.53 (7-11mm) LVOT Diam: 24.43 (18-24mm) LVDd: 71.84 mm PWd: 11.47 (7-11mm) Ascending Ao: 39.07 (22-36mm) LVDs: 59.20 (25-40mm) Aortic Root: 35.81 mm Volumes Left Atrial Volume (Systole) LA ESV Index: 67.00 mL/m2 Aortic Valve AoV Peak Joel.: 2.66 m/s AO Peak Gr.: 28.40 mmHg LVOT Max P.63 mmHg AO Mean Gr.: 17.44 mmHg LVOT Mean P.40 mmHg LVOT Max V: 0.40 m/s AO V2 VTI: 51.82 cm LVOT Mean V: 0.30 m/s ERIN (VTI): 0.84 cm2 LVOT V1 VTI: 9.26 [place] [address] 2 D/M-MODE ECHOCARDIOGRAM Name: JER CASTRO Room: [address] IN [facility].#: [id number] Admission: 05/21/21 Attend Phys: Jami Pacheco, Discharge: Date of : 52 Date of Service: 05/23/21 1247 Report #: [id number] Mitral Valve MV Decel. Time: 148.06 ms MV PHT: 42.94 ms MVA (PHT): 5.12 cm2 TDI Medial E' Joel.: 0.05 m/s Pulmonary Valve PV Peak Joel.: 0.70 m/s PV Peak Gr.: 1.96 mmHg Tricuspid Valve RAP Estimate: 10.00 mmHg TR Peak Gr.: 40.84 mmHg RVSP: 50.00 mmHg PA Pressure: 50.00 mmHg Left Ventricle Left ventricle is moderately dilated. There is severe global hypokinesis of the left ventricle. Mild concentric left ventricular hypertrophy. Left ventricular systolic function is severely decreased. LVEF is 15-20%. This study is not technically sufficient to allow evaluation of the LV diastolic function. Right Ventricle Right ventricle is mildly dilated. Right ventricle is mildly hypokinetic. Pacemaker lead is present in the right ventricle. Atria Left atrium is severely dilated. Right atrium is dilated. Aortic Valve Aortic valve is calcified. No aortic regurgitation is present. moderate aortic stenosis. Mitral Valve Moderate mitral annular calcification. The mitral valve is normal in structure. moderate mitral regurgitation. No evidence of mitral valve stenosis. Tricuspid Valve The tricuspid valve is normal in structure. Mild tricuspid regurgitation. estimated pa pressure 50 mm Hg Pulmonic Valve The pulmonary valve is normal in structure. Moderate [place] [address] 2 D/M-MODE ECHOCARDIOGRAM Name: JER CASTRO Room: [address] IN [facility]#: [id number] Admission: 05/21/21 Attend Phys: Jami Pacheco, Discharge: Date of : 52 Date of Service: 05/23/21 1247 Report #: [id number] Great Vessels The aortic root is normal in size. IVC is dilated. Pericardium Trace pericardial effusion. <Conclusion> Left ventricle is moderately dilated. Mild concentric left ventricular hypertrophy. LVEF is 15-20%. Right ventricle is mildly dilated. Left atrium is severely dilated. moderate aortic stenosis. moderate mitral regurgitation. Mild tricuspid regurgitation. estimated pa pressure 50 mm Hg <ELECTRONICALLY SIGNED> By: Chan Mcfarland MD, [facility] 05/23/21 124 46 46 Chan Mcfarland MD, FAC /INF
[2021-05-23 15:47] LABS: INR 1.3; PROTIME 12.9 Seconds (9.20-11.50)
[2021-05-23 17:47] VITALS: BP 102/77
[2021-05-23 20:00] VITALS: BP 108/70
[2021-05-24] VITALS: BP 111/79
[2021-05-24 04:00] VITALS: BP 124/84
[2021-05-24 08:23] VITALS: BP 110/82
--- NOTE | 2021-05-24 08:30 | NUR ---
GI LAB STATED EGD NOT TO BEGIN UNTIL 1400. WILL GIVE AM MEDS .
[2021-05-24 12:00] VITALS: BP 116/74
[2021-05-24 12:07] LABS: IgA 68 mg/dL (61-437); IgG 666 mg/dL (603-1613)
[2021-05-24 13:09] LABS: IgM < 5 mg/dL (20-172)
--- NOTE | 2021-05-24 13:27 | NUR ---
UPDATED PTS VIA PHONE ABOUT PT STATUS, ANSWERED ALL QUESTIONS.
--- NOTE | 2021-05-24 16:29 | NUR ---
PLAN OF CARE: PLAN FOR THE PT TO POSSIBLY D/C HOME WITH HH WHEN MEDICALLY STABLE. CM WILL REMAIN AVAILABLE TO ASSIST AND FOLLOW NEEDED.
--- NOTE | 2021-05-24 18:49 | NUR ---
PT HAD EGD TODAY. VERY IMPULSIVE PRIOR, ATTEMPTING TO GET OOB BY HIMSELF. PT WAS MOVED CLOSER TO NURSING STATION. GI RN STATED SHE UPDATED PTS OF EGD REPORT. PLANS FOR DARYL IN AM PER ID.
[2021-05-24 19:45] VITALS: BP 117/90
[2021-05-25] VITALS (19 sets, daily range): BP systolic 101–137; BP diastolic 67–92
[2021-05-25 02:06] LABS: HEPATITIS B SURFACE AG Negative (Negative)
--- NOTE | 2021-05-25 04:18 | NUR ---
PT A&O X 1, CONFUSED, IMPULSIVE. VSS ON RA. MEDS GIVEN ORDERED. NO C/O PAIN. UP TO CHAIR WITH MODERATE ASSIST. BILAT LE EDEMA. NPO SINCE MIDNIGHT FOR DARYL. CHAIR ALARM ON FOR SAFETY. CALL LIGHT WITHIN REACH. WILL CONTINUE TO MONTIOR.
[2021-05-25 07:08] LABS: CERULOPLASMIN 29.5 mg/dL (16.0-31.0)
--- NOTE | 2021-05-25 10:31 | NUR ---
PLAN OF CARE: PLAN FOR THE PT TO POSSIBLY RETURN HOME WITH HH AT D/C. PT IS OPEN TO HH IF ORDERED. NO OTHER CM D/C PLANNING NEEDS ANTICIPATED. CM WILL REMAIN AVAILABLE TO ASSIST AND FOLLOW NEEDED.
--- NOTE | 2021-05-25 11:03 | TEE ---
[place] [address] TRANSESOPHAGEAL ECHOCARDIOGRAM Name: JER CASTRO Room: [address] IN [facility]#: [id number] Admission: 05/21/21 Attend Phys: Jami Pacheco, Discharge: Date of : 52 Date of Service: 05/25/21 1102 Report #: [id number] THIS REPORT FOR: cc: FAM - No family physician/PCP FAM - No family physician/PCP Chan Mcfarland MD [facility] ~ APPROVED REPORT Study performed: 05/25/2021 08:54:10 EXAM: Transesophageal Echocardiogram Patient Location: In-Patient Room #: [facility] BSA: 2.37 HR: 70 bpm BP: 116/75 mmHg Rhythm: NSR Other Information Study Quality: Good Indications Rule out valvular vegetation Echo Enhancing Agent Indication: Rule out Shunt Agent(s) / Amount(s) Used: Agitated Saline 20 cc Comments: 2 bubble studies Procedure After obtaining informed consent, patient underwent transesophageal echo in the [employer]. Type of Sedation : Conscious Sedation Sedation was administered by Willian Peres RN. Sedation start time: 943 Case end Time: 1009 Sedation was achieved intravenously with: Versed (2) Fentanyl (50) Transesophageal probe was inserted and advanced into esophagus without difficulty by Chan Mcfarland MD, [facility]. Echo enhancement indication: R/O Septal defect. Echo enhancement agent administered: Agitated Saline The DARYL was performed without complications. Throughout the procedure, the blood pressure, pulse oximetry, cardiac rhythm, [place] [address] TRANSESOPHAGEAL ECHOCARDIOGRAM Name: CASTROJER YG Room: [address]#: [id number] Admission: 05/21/21 Attend Phys: Jami Pacheco, Discharge: Date of : 52 Date of Service: 05/25/21 1102 Report #: [id number] The patient tolerated the procedure without adverse effects. Recovery from conscious sedation was uneventful and vital signs were stable. Left Ventricle Left ventricle is moderately dilated. There is severe global hypokinesis of the left ventricle. Paradoxical septal motion consistent with paced rhythm. Borderline concentric left ventricular hypertrophy. Left ventricular systolic function is severely decreased. LVEF is 15-20%. Right Ventricle Right ventricle is dilated. Right ventricle is hypokinetic. Pacemaker lead is present in the right ventricle. Atria Left atrium is dilated. No thrombus is visualized in the left atrium or appendage. The interatrial septum is intact with no evidence for an atrial septal defect. The right atrium size is normal. Aortic Valve Aortic valve is calcified. No aortic regurgitation is present. There is no aortic valvular vegetation. At least moderate aortic stenosis. Mitral Valve The mitral valve is normal in structure. Mild mitral regurgitation. There is no evidence of mitral valve vegetations. No evidence of mitral valve stenosis. Tricuspid Valve The tricuspid valve is normal in structure. Mild tricuspid regurgitation. There is no tricuspid valve vegetations. Pulmonic Valve The pulmonary valve is normal in structure. There is no pulmonic valvular regurgitation. There is no pulmonic valve vegetations. Great Vessels The aortic root is normal in size. No atherosclerosis noted in descending, arch, or ascending aorta. Pericardium There [place] [address] TRANSESOPHAGEAL ECHOCARDIOGRAM Name: JER CASTRO Room: [address] IN [facility]#: [id number] Admission: 05/21/21 Attend Phys: Jami Pacheco, Discharge: Date of : 52 Date of Service: 05/25/211101 Report #: [id number] <Conclusion> LVEF is 15-20%. Left atrium is dilated. At least moderate aortic stenosis. Mild mitral regurgitation. There is no aortic valvular vegetation. <ELECTRONICALLY SIGNED> By: Chan Mcfarland MD, [facility] 05/25/211101 01 1102 Chan Mcfarland MD, FACC /INF
[2021-05-25 14:07] LABS: ANA INTERPRETATION Negative (())
[2021-05-25 14:44] LABS: ABSOLUTE EOSINOPHILS 0.1 thou/uL (0.0-0.7); ABSOLUTE LYMPHOCYTES 1.5 thou/uL (0.8-5.3); ABSOLUTE MONOCYTES 0.2 thou/uL (0.0-1.2); ABSOLUTE NEUTROPHILS 3.2 thou/uL (1.6-8.1); BASOPHILS 0.3 %; HEMATOCRIT 37.5 % (42.0-52.0); HEMOGLOBIN 12.3 gm/dL (14.0-18.0); LYMPHOCYTES 29.8 %; MCH 30.1 pg (26.0-34.0); MCHC 32.6 g/dL (28.0-37.0); MCV 92.3 fL (80.0-100.0); MONOCYTES 3.5 %; MPV 8.1 fl. (7.2-11.1); NUCLEATED RBCS 0 /100WBC; PLATELET COUNT* 121 thou/uL (150-400); POLYS 65.4 %; RBC 4.07 mil/uL (4.50-6.00); RDW-CV 15.7 % (10.5-14.5); WBC 4.9 thou/uL (4.0-11.0)
[2021-05-25 14:58] LABS: ALBUMIN 2.9 g/dL (3.4-5.0); CALCIUM 8.5 mg/dL (8.5-10.1); CREATININE 1.7 mg/dL (0.6-1.3); MAGNESIUM 2.4 mg/dL (1.8-2.4); POTASSIUM 3.8 mmol/L (3.5-5.1); TOTAL BILIRUBIN 1.6 mg/dL (<0.1-1.0); TOTAL PROTEIN 5.5 g/dL (6.4-8.2)
[2021-05-25 15:27] LABS: BF RBC 4060 /mm3; TOTAL CELL COUNT 822 /mm3
[2021-05-25 15:50] LABS: BF LYMPHOCYTES 59 %; BF POLYS 41 %; BF TISSUE 10 /100 WBC
[2021-05-25 15:51] LABS: CLARITY HAZY; TOTAL VOLUME 1960 ml
[2021-05-25 15:52] LABS: SOURCE THORACENTESIS
[2021-05-26 00:39] VITALS: BP 117/83
[2021-05-26 04:00] VITALS: BP 108/79
--- NOTE | 2021-05-26 05:00 | NUR ---
PT A&O X 3-4, IMPULSIVE. CONFUSED AT TIMES, VSS ON RA. MEDS GIVEN ORDERED. BLE ELEVATED ON PILLOW. DENIED PAIN. PT UP WITH 1-2 ASSIST. USED URINAL TO VOID. ALARM ON FOR SAFETY. WILL CONTINUE TO MONITOR.
[2021-05-26 05:43] LABS: ABSOLUTE EOSINOPHILS 0.1 thou/uL (0.0-0.7); ABSOLUTE LYMPHOCYTES 1.6 thou/uL (0.8-5.3); ABSOLUTE MONOCYTES 0.2 thou/uL (0.0-1.2); ABSOLUTE NEUTROPHILS 3.1 thou/uL (1.6-8.1); BASOPHILS 0.2 %; EOSINOPHILS 1.7 %; HEMATOCRIT 36.9 % (42.0-52.0); MCH 29.9 pg (26.0-34.0); MCHC 32.4 g/dL (28.0-37.0); MCV 92.4 fL (80.0-100.0); MONOCYTES 3.6 %; MPV 8.9 fl. (7.2-11.1); NUCLEATED RBCS 0 /100WBC; PLATELET COUNT* 120 thou/uL (150-400); POLYS 62.5 %; RDW-CV 15.8 % (10.5-14.5)
[2021-05-26 06:10] LABS: ALBUMIN 2.8 g/dL (3.4-5.0); CALCIUM 8.4 mg/dL (8.5-10.1); CREATININE 1.7 mg/dL (0.6-1.3); POTASSIUM 3.4 mmol/L (3.5-5.1); TOTAL BILIRUBIN 1.4 mg/dL (<0.1-1.0); TOTAL PROTEIN 5.3 g/dL (6.4-8.2)
[2021-05-26 07:56] VITALS: BP 110/74
[2021-05-26 11:00] VITALS: BP 109/76
[2021-05-26 13:07] LABS: BODY FLUID PROTEIN 2.4 g/dL (())
[2021-05-26 16:00] VITALS: BP 113/80
--- NOTE | 2021-05-26 17:08 | NUR ---
AM ASSESSMENT AND VITAL SIGNS COMPLETED DOCUMENTED. PT HAS BEEN COOPERATIVE AT TIMES BUT CONTINUES TO GET OUT OF BED WITHOUT CALLING AND INSISTS HE IS GOING HOME. PT IS REDIRECTABLE AT TIMES. IV ABX CONTINUE WITHOUT ADVERSE REACTIONS. PT HAS A PACEMAKER AND IS A PACED ON THE TRASH MAN. FALL PRECAUTIONS AND FREQUENT OBSERVATION CONTINUE.
[2021-05-26 20:00] VITALS: BP 118/80
[2021-05-27 01:50] VITALS: BP 110/81
[2021-05-27 04:29] LABS: ABSOLUTE EOSINOPHILS 0.1 thou/uL (0.0-0.7); ABSOLUTE LYMPHOCYTES 1.2 thou/uL (0.8-5.3); ABSOLUTE MONOCYTES 0.2 thou/uL (0.0-1.2); ABSOLUTE NEUTROPHILS 2.7 thou/uL (1.6-8.1); BASOPHILS 0.4 %; EOSINOPHILS 1.8 %; HEMATOCRIT 36.8 % (42.0-52.0); LYMPHOCYTES 28.7 %; MCH 29.9 pg (26.0-34.0); MCHC 32.5 g/dL (28.0-37.0); MCV 92.1 fL (80.0-100.0); MONOCYTES 3.8 %; MPV 8.6 fl. (7.2-11.1); NUCLEATED RBCS 0 /100WBC; PLATELET COUNT* 113 thou/uL (150-400); POLYS 65.3 %; WBC 4.2 thou/uL (4.0-11.0)
--- NOTE | 2021-05-27 04:46 | NUR ---
PATIENT SLEPT WELL DURING THIS SHIFT. PT IS ALERT/ORIENTED X4 BUT CONFUSED AT TIMES. PT FORGETS TO USE CASTRO PRIOR TO GETTING OUT OF BED. PT UP WITH WALKER AND ASSIST TO BATHROOM TO VOID. PT WILL NOT WAIT FOR G.BELT. PT SLOW BUT STEADY WITH WALKER. PT VOIDS YELLOW URINE. PT WITH TUBIGRIP ON RT LEG AND HAS DSG ON LT BUTTOCKS. PT DENIES PAIN DURING THIS SHIFT. PT ON CONTINUOUS SAT MONITOR TO MONITOR RESPIRATIONS DURING SLEEP. FREQUENTLY USED ITEMS AND CASTRO WITHIN REACH. SIDERAILS UPX2 AND BED ALARM ON. WILL CONTIUE TO MONITOR.
[2021-05-27 04:53] LABS: ALBUMIN 2.8 g/dL (3.4-5.0); CALCIUM 8.2 mg/dL (8.5-10.1); CREATININE 1.6 mg/dL (0.6-1.3); POTASSIUM 3.3 mmol/L (3.5-5.1); TOTAL BILIRUBIN 1.2 mg/dL (<0.1-1.0); TOTAL PROTEIN 5.4 g/dL (6.4-8.2)
[2021-05-27 05:26] VITALS: BP 105/77
[2021-05-27 09:26] VITALS: BP 116/88
[2021-05-27 13:57] VITALS: BP 101/77
[2021-05-27 16:45] VITALS: BP 134/89
--- NOTE | 2021-05-27 17:35 | NUR ---
PT IS UP WITH GAIT BELT AND WALKER X 1ASST. PT IS ON RM AIR. PT HAS IV IN LT WRIST. PT HAS WOUND ON LT GREAT TOE, AND BUTTOCKS PICTURES TAKEN AND PUT IN CHART ALL WOUND REWRAPPED AND NEW SOCKS PUT ON. PT POTASSIUM WAS 3.3 PT TOOK FIRST DOSE BUT REFUSED SECOND DOSE. LAB PUT IN FOR REDRAW. PT IS RESTING IN BED WITH CALL LIGHT IN REACH.
[2021-05-27 20:00] VITALS: BP 116/90
[2021-05-28] VITALS: BP 103/73
--- NOTE | 2021-05-28 05:04 | NUR ---
PATIENT SLEPT WELL DURING THIS SHIFT. PT SITS ON SIDE OF BED FOR APPROX 30 MINUTES. PT UP WITH USE OF WALKER, G.BELT AND WALKER PLUS ASSIST OF ONE TO THE BATHROOM. PT WILL FORGET TO USE CASTRO AT TIMES. PT REFUSED ALL NIGHT TIME MEDICATIONS; PT VERY SLEEPY/DROWSY AT THIS TIME. PT WITH SALINE LOCK. PT IS ON ROOM AIR. FREQUENTLY USED ITEMS AND CALL LIGHT WITHIN REACH. SIDERAILS UPX2 AND BED ALARM ON. WILL CONTINUE TO MONITOR.
[2021-05-28 05:24] VITALS: BP 105/72
[2021-05-28 08:00] VITALS: BP 90/57
[2021-05-28 08:12] LABS: ABSOLUTE EOSINOPHILS 0.1 thou/uL (0.0-0.7); ABSOLUTE LYMPHOCYTES 1.1 thou/uL (0.8-5.3); ABSOLUTE MONOCYTES 0.2 thou/uL (0.0-1.2); ABSOLUTE NEUTROPHILS 2.2 thou/uL (1.6-8.1); BASOPHILS 0.3 %; EOSINOPHILS 1.8 %; HEMATOCRIT 36.8 % (42.0-52.0); HEMOGLOBIN 11.9 gm/dL (14.0-18.0); LYMPHOCYTES 31.1 %; MCH 29.8 pg (26.0-34.0); MCHC 32.4 g/dL (28.0-37.0); MCV 91.9 fL (80.0-100.0); MONOCYTES 4.3 %; MPV 9.1 fl. (7.2-11.1); NUCLEATED RBCS 0 /100WBC; PLATELET COUNT* 101 thou/uL (150-400); POLYS 62.5 %; RDW-CV 16.1 % (10.5-14.5); WBC 3.5 thou/uL (4.0-11.0)
[2021-05-28 08:25] LABS: ALBUMIN 2.9 g/dL (3.4-5.0); CALCIUM 8.1 mg/dL (8.5-10.1); CREATININE 1.6 mg/dL (0.6-1.3); POTASSIUM 3.9 mmol/L (3.5-5.1); TOTAL BILIRUBIN 0.9 mg/dL (<0.1-1.0); TOTAL PROTEIN 5.2 g/dL (6.4-8.2)
[2021-05-28 12:09] VITALS: BP 101/65
--- NOTE | 2021-05-28 14:01 | NUR ---
PLAN OF CARE: INITIAL PLAN FOR THE PT TO D/C TO SNF. HOWEVER CM RECIEVED A CALL FROM PT'S SPOUSE TO INFORM OF PT AND HER PREFERENCE FOR THE PT TO RETURN HOME WITH HH. PT'S SPOUSE INFORMS THAT SHE HAS 'ALWAYS PROVIDED ALL CARE FOR HIM, AND HE WILL IF HE GOES TO THE RESIDENTIAL. WE HAVE DONE THIS BEFORE AND IT DIDN'T GO WELL. HE DOESN'T WANT TO GO THERE, AND I DON'T WANT HIM TO GO THERE'. CM ATTEMPTED TO EDUCATE AND ENCOURAGE THE PT'S SPOUSE ABOUT THE BENEFITS OF SNF PLACEMENT D/T PT'S WEAKNESS AND NEED. PT'S SPOUSE CONTINUES TO DECLINE. PT'S SPOUSE REQUEST HH WITH [facility]. CM SPOKE TO THE PT TO DISCUSS SNF PLACEMENT WELL AND THE PT STATED 'YOU MIGHT WELL KILL ME, BECUASE I WILL IF I GO TO THE RESIDENTIAL'. CM DID NOT PERSUE THE CONVERSATON FURTHER. CM INFORMED RN AND PHYSICIAN OF THE ABOVE CONVERSATIONS, CM FAXED PT'S CLINCIAL INFO TO [facility]. CM WILL REMAIN AVAILABLE TO ASSIST AND FOLLOW NEEDED.
--- NOTE | 2021-05-28 15:07 | PATH ---
[address] [address] PATHOLOGY RPT PROCEDURE Name: BALJIT SINGH Room: [address] IN M.R.#: [id number] Admission: 05/21/21 Date of : 52 Discharge: Report #: [id number] Path Case #: [id number] [facility] Accession Number: [id number] . 01 Material submitted: . stomach - ANTRAL EROSIONS . 01 Clinical history: . EGD IN OR . 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 (HUGO:slime; 05/28/2021) . Special stain: H. pylori immuno QMS 05/28/2021 1007 Local . 02 Electronically signed: . Dylan Singh MD, Pathologist NPI- [id number] . 01 Gross description: . The specimen is received in formalin, labeled "Singh, Baljit, antral erosions". Received are 3 segments of pale davison tissue ranging in size from 0.3 cm to 0.4 cm in maximum dimensions. The specimen is submitted entirely in cassette A1.([facility]; 05/25/2021) [facility] 05/25/2021 1219 Local . 02 Pathologist provided ICD-10: K29.50 . 02 CPT . 926898, [id number] Specimen Comment: A courtesy copy of this report has been sent to [phone] Specimen Comment: [phone] Specimen Comment: Report sent to / DR CHAPMAN Performed at: [address], [place] [id number] MD Jose Luis Chanel MD Phone: [phone] Performed at: 02 [facility] [address], [place], [place] [id number] MD Dylan Sinhg MD Phone: [phone]
[2021-05-28 15:43] VITALS: BP 123/83
[2021-05-28 20:00] VITALS: BP 116/78
--- NOTE | 2021-05-28 22:34 | NUR ---
I ASSUMED CARE OF THE PATEINT AT 0700. HE IS ALERT AND ORIENTED, BUT CAN BE CONFUSED AND STUBBORN. BED IS IN THE LOW LOCKED POSITION AND CALL LIGHT IS IN REACH WITH BED AND CHAIR ALARM IN PLACE. PATIENT NEEDS ARE MET DURING HOURLY ROUNDING. HE IS UP TO THE CHAIR FOR MEALS WITH FEET ELEVATED. PATIENT REFUSES TO GO TO A FACILITY AND SAYS YOU MAY WELL JUST KILL HIM. HE AND HIS ARE EACH OTHER'S CARE GIVERS AND CASE MANAGMENT HAS BEEN UPDATED ON HIS FEELINGS. POSSIBLE DISCHARGE ON 05/29/21. BLOOD GLUCOSE IS MONITORED AND MANAGED WITH INSULIN. PATIENT IS BLIND AND NEEDS MEAL SETUP AND ASSISTANCE. WILL CONTINUE TO MONITOR.
[2021-05-28 22:52] LABS: SOURCE THORACENTESIS
[2021-05-29] VITALS: BP 121/81
[2021-05-29 04:00] VITALS: BP 106/71
[2021-05-29 05:02] LABS: HEMATOCRIT 36.6 % (42.0-52.0); HEMOGLOBIN 11.8 gm/dL (14.0-18.0); MCH 29.8 pg (26.0-34.0); MCHC 32.4 g/dL (28.0-37.0); MCV 92.2 fL (80.0-100.0); MPV 8.9 fl. (7.2-11.1); NUCLEATED RBCS 0 /100WBC; PLATELET COUNT* 104 thou/uL (150-400); RBC 3.97 mil/uL (4.50-6.00); RDW-CV 15.5 % (10.5-14.5); WBC 4.2 thou/uL (4.0-11.0)
[2021-05-29 05:13] LABS: ALBUMIN 2.9 g/dL (3.4-5.0); CREATININE 1.5 mg/dL (0.6-1.3); POTASSIUM 3.9 mmol/L (3.5-5.1); TOTAL BILIRUBIN 0.8 mg/dL (<0.1-1.0); TOTAL PROTEIN 5.3 g/dL (6.4-8.2)
[2021-05-29 07:15] LABS: ABSOLUTE LYMPHOCYTES 1.9 thou/uL (0.8-5.3); ABSOLUTE MONOCYTES 0.1 thou/uL (0.0-1.2); ABSOLUTE NEUTROPHILS 2.2 thou/uL (1.6-8.1)
[2021-05-29 07:17] LABS: PLATELET ESTIMATE DECREASED
[2021-05-29 08:00] VITALS: BP 103/69
[2021-05-29 12:36] VITALS: BP 103/69
[2021-05-29] MEDS ORDERED: PROTONIX40 M2 PO (12:58)
[2021-05-29] MEDS ORDERED: CARAFATE 1 GM TA1 G1 PO (12:58)
[2021-05-29] MEDS ORDERED: LEVOFLOXACIN500 MG PO (13:00)
[2021-05-29 13:01] VITALS: BP 93/66
--- NOTE | 2021-05-29 13:08 | PATH ---
[address] [address] PATHOLOGY RPT PROCEDURE Name: JER SINGH Room: [address] IN [facility]#: [id number] Admission: 05/21/21 Date of : 52 Discharge: Report #: [id number] Path Case #: [id number] Note [facility] Accession Number: [id number] TESTS RESULT FLAG UNITS REF RANGE LAB Clinician Provided Cytology Information No. of containers..01 Other (Miscellaneous) Source: RIGHT PLEURAL DIAGNOSIS: 02 RIGHT PLEURAL NEGATIVE FOR MALIGNANT CELLS. REACTIVE MESOTHELIAL CELLS AND INFLAMMATORY CELLS, PREDOMINANTLY CHRONIC. THIS INTERPRETATION INCLUDES EVALUATION OF A CELL BLOCK. Signed out by: 02 Dylan Singh MD, Pathologist NPI- [id number] Performed by: Dara Robison, Wheel Buffer ([facility]) Gross description: 01 45ML, LONG, CLEAR /LCS 05/28/2021 1651 Local FLAG LEGEND: L-Low Normal,H-High Normal,LL-Alert Low,HH-Alert High <-Panic Low,>-Panic High,A-Abnormal,AA-Critical Abnormal Performed at: 01 [facility] [address] [place] [address] Jose Luis Chanel MD, [address] [address] Dylan Singh MD, Specimen Comment: A courtesy copy of this report has been sent to [phone] Specimen Comment: Report sent to Performed at: 01 [facility] [address], [place], [place] [id number] MD Jose Luis Chanel MD Phone: [phone]
--- NOTE | 2021-05-29 14:04 | NUR ---
WOUND CARE: PATIENT SEEN IN FOLLOW UP FOR MULTIPLE WOUNDS. RIGHT GREAT TOE STABLE ESCHAR MEASURING 1.2 X 0.7 X UNMEASUREABLE DEPTH. AREA CLEANSED AND PAINTED WITH BEATDINE. BILATERAL LOWER EXTREMITY HAS 4+ PITTING EDEMA, BOTH LEGS ARE COOL TO TOUCH AND LEFT LEG WEEPING YELLOW DRAINAGE. LEGS MEASURE RIGHT- FOOT 30CM ANKLE 31.5CM AND CALF 43CM, LEFT- FOOT 31CM ANKLE 33CM AND CALF 49CM. TUBIGRIP REAPPLIED SIZE E ON RIGHT SIZE G ON LEFT. BUTTOCK WOUND MEASURES 1.0CM X 0.7CM 0.2CM IT IS 75% EPITHELIAL AND 25% GRANULATION THAT IS FIRM AND PINK. BORDER FOAM APPLIED. PICTURES TAKEN OF ALL. DENIES OTHER NEEDS AT THIS TIME.
--- NOTE | 2021-05-29 15:24 | NUR ---
PLAN FOR THE PT TO D/C HOME TODAY WITH [facility]. [facility] WILL CONTACT THE PATIENT TO ARRANGE A TIME TO VISIT IN 24-48 HRS. PT AND SPOUSE IN AGREEMENT. W/C VAN TRANSPORT ARRNAGED WITH [facility] FOR [id number]. RN INFORMED AND IN AGREEMENT. CM WILL REMAIN AVAILABLE TO ASSIST AND FOLLOW NEEDED. [facility] PHONE: [phone]
[2021-05-29 16:12] VITALS: BP 90/52
--- NOTE | 2021-05-30 19:29 | CON ---
[address] [address] CONSULTATION Name: JER CASTRO Room: [address] IN M.R.#: [id number] Admission: 05/21/21 Attend Phys: Jami Pacheco MD Discharge: 05/29/21 Date of : 52 Report #: [id number] THIS REPORT FOR: cc: MARY - No family physician/PCP FAM - No family physician/PCP Oliver Caban MD ~ DATE OF CONSULTATION: 05/25/2021 REQUESTING PHYSICIAN: Steve Huang MD INDICATION FOR CONSULTATION: Bacteremia and pleural effusion. HISTORY OF PRESENT ILLNESS: A 70-year-old gentleman, past medical history includes a history of congestive heart failure with left ventricular ejection fraction. On previous echo, is only 15-20%, which is his EF now as well. Details of why he has congestive heart failure is not known to me; however, the patient is noted to have had a CABG in the past. The patient also reported to have had ljnxoxhk-qv-golqgq aortic stenosis. He has chronic renal insufficiency, baseline creatinine is 1.4-1.5. At this time, the patient is admitted initially on 05/21, presentation is with worsening weakness. He has had some shortness of breath as well; however, this does not appear to be a major complaint for him. He provided a limited history. He has significant swelling of lower extremities. He does not state as to whether this is any worse or not. Since admission, the patient has had an EGD. He was on Eliquis at home, which is currently on hold per GI. He had a thoracentesis yesterday. Pleural fluid has not been sent for analysis, although there is some fluid orders for this morning, also had a DARYL this morning. He takes Eliquis. He understands there is a plan for colonoscopy. REVIEW OF SYSTEMS: The patient answers to the negative for 12 questions for review of systems except as mentioned above. PAST MEDICAL HISTORY: Coronary artery disease status post CABG, congestive heart failure, left ventricular ejection fraction is 15-20%. Previous echo showed a pulmonary artery systolic around 37, now up to 50. Also, history of diabetes, hypertension, chronic renal insufficiency, baseline creatinine 1.4-1.5, lymphoma, status post appendectomy. He has recently been diagnosed with cirrhosis. Etiology of cirrhosis is being worked up by the GI service. Atrial fibrillation, on Eliquis at home. SOCIAL HISTORY: No known history of smoking, ethanol abuse, [place] [address] CONSULTATION Name: JER CASTRO Room: [address] IN [facility]#: [id number] Admission: 05/21/21 Attend Phys: Jami Pacheco MD Discharge: 05/29/21 Date of : 52 Report #: [id number] CURRENT MEDICATIONS: List in [facility] reviewed. HOME MEDICATIONS: List in [facility] reviewed. ALLERGIES: INTOLERANCE TO NIFEDIPINE, this may not be a true allergy. FAMILY HISTORY: No pertinent family history other then heart disease. PHYSICAL EXAMINATION: GENERAL: He is alert, awake and oriented. He, however, provides a limited history. VITAL SIGNS: In the records, these are reviewed. He is on room air. HEENT: Head is normocephalic and atraumatic. NECK: Does not show raised JVP, asymmetry, mass or lymph nodes. There is no throat erythema. Neck does not show raised JVP, asymmetry, mass or lymph nodes. CHEST: Symmetrical expansion on inspection and palpation. On auscultation, breath sounds are bilaterally equal. There are no added sounds. HEART: Irregular. There is a soft systolic murmur. ABDOMEN: Soft and nontender. EXTREMITIES: Lower extremities show 3+ edema bilaterally. No calf tenderness. SKIN: Dry and intact. NEUROLOGIC: Moves all extremities bilaterally equally and spontaneously with no focal deficit identified. LABORATORY DATA: The patient's lab work as well as a CT chest, which shows a large pleural effusion and chest x-rays and other Radiology imaging in [facility] reviewed. Positive blood cultures noted. ASSESSMENT AND PLAN: 1. Pseudomonas stutzeri bacteremia with a right-sided pleural effusion. The patient has had a thoracentesis yesterday. I understand the fluid has not been sent for analysis, orders are for this morning in the computer. I asked the patient's RN to see if we can still do the analysis. The pleural effusion is primarily right-sided although there is a smaller pleural effusion on the left side as well, the possibility of empyema is not ruled out at this time. An exudative pleural effusion will be consistent with an infectious etiology as well as a transudative effusion consistent with fluid overload and congestive heart failure. It is unlikely that this pleural effusion has been fully drained and the thoracentesis already performed. The patient likely will need a repeat thoracentesis. Since it is Friday afternoon and the patient is stable, I understand a thoracentesis may not be available until Friday morning. I would like to obtain a repeat CT chest without contrast and will then comment further. Meanwhile, the patient remains on antibiotics per ID. Interestingly, the pseudomonas is sensitive [place] [address] CONSULTATION Name: JER CASTRO Room: [address]#: [id number] Admission: 05/21/21 Attend Phys: Jami Pacheco MD Discharge: 05/29/21 Date of : 52 Report #: [id number] 2. Chronic systolic congestive heart failure with a left ventricular ejection fraction of 15-20% and gprhwqvi-be-sxsrke aortic stenosis. The patient is significantly fluid overloaded on my exam at this time, but also he is an acute on chronic renal failure, I would recommend repeat labs to assess as to whether diuresis is appropriate at this time. He has had imaging of his abdomen recently. 3. Suspected obstructive sleep apnea/central sleep apnea. He likely has nocturnal hypoxemia as well. Will benefit from workup. 4. Acute on chronic renal failure. His baseline creatinine is 1.4-1.5. See further discussion above. 5. Cirrhosis of liver. Defer workup to the GI service, noted to be hepatitis B and C negative. Thanks for this consultation. <ELECTRONICALLY SIGNED> By: Oliver Caban MD 05/30/21 1929 1349 1446Acady Caban MD /nt
== END 2021-05-29 18:00 | disposition home health service (06) | DRG 871 ==
LOC: M.ERS 08:50 → M.TBA-ER 12:08 → M.2W 12:08
PROVIDERS: Family Medicine; Internal Medicine; Internal Medicine Critical Care Medicine; Nurse Practitioner Adult Health; ADMIT Internal Medicine; ATTEND Internal Medicine
PROC: 0W993ZZ Drainage of Right Pleural Cavity, Percutaneous Approach (ICD-10-PCS; principal; 2021-05-24)
PROC: 0DB68ZX Excision of Stomach, Via Natural or Artificial Opening Endoscopic, Diagnostic (ICD-10-PCS; principal; 2021-05-24)
PROC: B24BZZ4 Ultrasonography of Heart with Aorta, Transesophageal (ICD-10-PCS; 2021-05-25)
DX: A41.52 Sepsis due to Pseudomonas (principal); J15.1 Pneumonia due to Pseudomonas; J96.01 Acute respiratory failure with hypoxia; G92.8 Other toxic encephalopathy; N17.0 Acute kidney failure with tubular necrosis; I50.23 Acute on chronic systolic (congestive) heart failure; J91.8 Pleural effusion in other conditions classified elsewhere; C91.10 Chronic lymphocytic leukemia of B-cell type not having achieved remission; I42.9 Cardiomyopathy, unspecified; I13.0 Hypertensive heart and chronic kidney disease with heart failure and stage 1 through stage 4 chronic kidney disease, or unspecified chronic kidney disease; Z20.822 Contact with and (suspected) exposure to COVID-19; E66.9 Obesity, unspecified; E78.5 Hyperlipidemia, unspecified; I48.91 Unspecified atrial fibrillation; D64.9 Anemia, unspecified; K74.60 Unspecified cirrhosis of liver; D69.6 Thrombocytopenia, unspecified; I25.10 Atherosclerotic heart disease of native coronary artery without angina pectoris; R74.01 Elevation of levels of liver transaminase levels; I35.0 Nonrheumatic aortic (valve) stenosis; N18.30 Chronic kidney disease, stage 3 unspecified; E11.65 Type 2 diabetes mellitus with hyperglycemia; E11.22 Type 2 diabetes mellitus with diabetic chronic kidney disease; K44.9 Diaphragmatic hernia without obstruction or gangrene; K29.70 Gastritis, unspecified, without bleeding; Z79.01 Long term (current) use of anticoagulants; Z90.49 Acquired absence of other specified parts of digestive tract; Z95.1 Presence of aortocoronary bypass graft; Z68.31 Body mass index [BMI] 31.0-31.9, adult; I25.2 Old myocardial infarction; Z88.8 Allergy status to other drugs, medicaments and biological substances; Z95.0 Presence of cardiac pacemaker

== ENCOUNTER 2021-06-11 16:55 | Inpatient (IN) | payer OTHER ==
[~2021-06-11] VITALS: Ht 190.5 cm; Wt 104.3 kg
[~2021-06-11 16:55] MED LIST changes: +CARAFATE 1 GM TA1 G1 PO; +ELIQUIS5 MG PO; +LEVOFLOXACIN500 MG PO; +PROTONIX40 M2 PO
[2021-06-11 16:58] VITALS: BP 113/83
[2021-06-11 18:09] LABS: HEMATOCRIT 36.9 % (42.0-52.0); MCH 29.8 pg (26.0-34.0); MCHC 32.6 g/dL (28.0-37.0); MCV 91.4 fL (80.0-100.0); MPV 9.4 fl. (7.2-11.1); NUCLEATED RBCS 0 /100WBC; PLATELET COUNT* 107 thou/uL (150-400); RBC 4.04 mil/uL (4.50-6.00); RDW-CV 15.9 % (10.5-14.5); WBC 5.2 thou/uL (4.0-11.0)
[2021-06-11 18:12] LABS: CALCIUM 8.6 mg/dL (8.5-10.1); CREATININE 1.6 mg/dL (0.6-1.3)
[2021-06-11 18:16] LABS: ALBUMIN 3.5 g/dL (3.4-5.0); MAGNESIUM 2.2 mg/dL (1.8-2.4); TOTAL BILIRUBIN 1.1 mg/dL (<0.1-1.0); TOTAL PROTEIN 5.9 g/dL (6.4-8.2)
[2021-06-11 18:50] LABS: ABSOLUTE EOSINOPHILS 0.1 thou/uL (0.0-0.7); ABSOLUTE LYMPHOCYTES 2.1 thou/uL (0.8-5.3); ABSOLUTE MONOCYTES 0.5 thou/uL (0.0-1.2); ABSOLUTE NEUTROPHILS 2.5 thou/uL (1.6-8.1); PLATELET ESTIMATE ADEQUATE
[2021-06-11 20:46] VITALS: BP 102/77
[2021-06-11 23:54] VITALS: BP 113/72
[2021-06-12 04:00] VITALS: BP 85/58
[2021-06-12 07:30] VITALS: BP 103/75
[2021-06-12 11:52] VITALS: BP 103/75
[2021-06-12 12:55] LABS: INFLUENZA A ANTIGEN Negative (Negative); INFLUENZA B ANTIGEN Negative (Negative)
--- NOTE | 2021-06-12 14:45 | EKG ---
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 : 1950 Requested By: Geoff Wood Order Number: [id number] MD: Chan Mcfarland Measurements Intervals Raymond Rate: 70 P: HI: QRS: -59 QRSD: 227 T: 130 QT: 504 QTc: 544 Interpretive Statements V-paced complexes No further analysis attempted due to paced rhythm Compared to ECG 05/21/2021 09:29:50 No significant changes Electronically Signed On 06-12-2021 14:45:16 SWITCH COUPLER by Chan Mcfarland [email or web address] <ELECTRONICALLY SIGNED> By: Chan Mcfarland MD, [facility] 06/12/21 1445 1701 1701 Chan Mcfarland MD, [facility] /EPI
[2021-06-12 16:05] VITALS: BP 101/70
[2021-06-12 20:00] VITALS: BP 117/80
[2021-06-13] VITALS: BP 128/86
[2021-06-13 04:00] VITALS: BP 162/63
[2021-06-13 07:24] VITALS: BP 110/82
[2021-06-13 07:35] VITALS: BP 110/82
[2021-06-13 16:00] VITALS: BP 117/48
--- NOTE | 2021-06-13 17:12 | CON ---
[address] [address] CONSULTATION Name: JER CASTRO Room: [address] ADM IN M.R.#: [id number] Admission: 06/11/21 Attend Phys: Parker Oh Discharge: Date of : 52 Report #: [id number] THIS REPORT FOR: cc: FAM - No family physician/PCP FAM - No family physician/PCP Chan Mcfarland MD [facility] ~ DATE OF CONSULTATION: 06/13/2021 CARDIOLOGY CONSULTATION HISTORY OF PRESENT ILLNESS: The patient is a 70-year-old white male who I was asked to see in the hospital today because of his history of coronary artery disease. The history is obtained from some old records as well as the patient. He has had several hospitalizations here at [facility]. He was actually admitted here a year ago. He had previous coronary artery bypass surgery at [facility] years ago. He has been followed by Dr. Flores. He has permanent atrial fibrillation, has been on warfarin for anticoagulation. He has a pacemaker insertion for slow rates. His last hospitalization was earlier month when he was hypoxic and felt to have pneumonia. He was essentially discharged. He was brought back to the Emergency Room 2 days ago after being home for 10 days by ambulance because of shortness of breath, weight gain, swollen feet. He has a chronic ulcer on his foot. Home health nurse called the ambulance. He denies any recent chest pain, shortness of breath, palpitations or bleeding. He has difficulty walking at this time because of the foot ulcer. He has used a walker in the past. FAMILY HISTORY: His father had heart problems. REVIEW OF SYSTEMS: No history of stroke or asthma. He has chronic kidney disease. He has a history of leukemia. PHYSICAL EXAMINATION: GENERAL: Revealed an elderly, frail-appearing male, lying in bed, appeared in no acute distress. VITAL SIGNS: He had a blood pressure of 120/80, pulse 70, he was afebrile. HEENT: He was anicteric. Conjunctivae are pink. Mucous membranes appear dry. NECK: Veins do not appear distended. CHEST: Clear to auscultation. HEART: Irregular rhythm, no significant murmur. ABDOMEN: Distended, but soft. EXTREMITIES: Had pitting edema. SKIN: Cool and dry. NEUROLOGIC: Nonfocal. His ECG showed atrial fibrillation with 100% ventricular [place] [address] CONSULTATION Name: JER CASTRO Room: [address]#: [id number] Admission: 06/11/21 Attend Phys: Parker Oh Discharge: Date of : 52 Report #: [id number] patient actually had an echocardiogram in 04/2021 that showed an ejection fraction only 20% with moderate aortic stenosis and a peak gradient across the aortic valve of 30 mmHg. There was moderate mitral regurgitation. His chest x-ray on admission showed severe cardiomegaly, mild pulmonary edema, small effusion. Venous ultrasound showed no DVT. LABORATORY DATA: His BUN 26, creatinine 1.6, has been as high as 2.1 in the past. His liver function studies were normal. High sensitivity troponin was 40. BNP 35,000. His hemoglobin 12.0. INR on 05/23 was only 1.3. IMPRESSION AND RECOMMENDATIONS: 1. Coronary artery disease. Previous bypass surgery. No recent angina. 2. Atrial fibrillation. The patient has been chronically anticoagulated with Eliquis, rate controlled with a beta grayson. 3. Hyperlipidemia. The patient is on a statin drug. 4. Foot sore. The patient is scheduled to have surgery. 5. Diabetes. 6. Severe cardiomyopathy. The patient is on a beta grayson. He is not on DOTTY inhibitor or ARB because of low blood pressure. 7. Dementia. 8. Moderate aortic stenosis. 9. Previous placement of a pacemaker. 10. Chronic lymphocytic leukemia. The patient has been on oral chemotherapy. 11. Obesity. <ELECTRONICALLY SIGNED> By: Chan Mcfarland MD, FACC 06/13/21 1712 1250 1530Daeliud Mcfarland MD, FACC /nt
[2021-06-13 20:00] VITALS: BP 109/73
[2021-06-14] VITALS: BP 133/42
[2021-06-14 03:59] LABS: HEMATOCRIT 36.9 % (42.0-52.0); HEMOGLOBIN 12.2 gm/dL (14.0-18.0); MCH 30.1 pg (26.0-34.0); MCHC 32.9 g/dL (28.0-37.0); MCV 91.5 fL (80.0-100.0); MPV 8.9 fl. (7.2-11.1); RBC 4.03 mil/uL (4.50-6.00); RDW-CV 16.7 % (10.5-14.5); WBC 7.3 thou/uL (4.0-11.0)
[2021-06-14 04:00] VITALS: BP 120/55
[2021-06-14 04:24] LABS: ALBUMIN 3.2 g/dL (3.4-5.0); CALCIUM 8.7 mg/dL (8.5-10.1); CREATININE 1.7 mg/dL (0.6-1.3); MAGNESIUM 2.1 mg/dL (1.8-2.4); POTASSIUM 3.6 mmol/L (3.5-5.1); TOTAL BILIRUBIN 1.3 mg/dL (<0.1-1.0); TOTAL PROTEIN 5.7 g/dL (6.4-8.2)
[2021-06-14 08:00] VITALS: BP 108/79
[2021-06-14 12:00] VITALS: BP 97/69
[2021-06-14 16:00] VITALS: BP 102/69
[2021-06-14 19:45] VITALS: BP 99/69
[2021-06-15 05:00] LABS: HEMATOCRIT 33.2 % (42.0-52.0); HEMOGLOBIN 11.1 gm/dL (14.0-18.0); MCH 30.5 pg (26.0-34.0); MCHC 33.6 g/dL (28.0-37.0); MCV 90.8 fL (80.0-100.0); MPV 8.8 fl. (7.2-11.1); RBC 3.66 mil/uL (4.50-6.00); RDW-CV 16.1 % (10.5-14.5); WBC 5.5 thou/uL (4.0-11.0)
[2021-06-15 10:15] LABS: ALBUMIN 2.9 g/dL (3.4-5.0); CALCIUM 8.2 mg/dL (8.5-10.1); CREATININE 1.7 mg/dL (0.6-1.3); MAGNESIUM 1.8 mg/dL (1.8-2.4); POTASSIUM 3.5 mmol/L (3.5-5.1); TOTAL BILIRUBIN 1.4 mg/dL (<0.1-1.0); TOTAL PROTEIN 5.3 g/dL (6.4-8.2)
[2021-06-15 12:38] VITALS: BP 108/72
[2021-06-15 12:46] VITALS: BP 108/72
[2021-06-15 17:54] VITALS: BP 114/77
[2021-06-15 20:30] VITALS: BP 116/77
[2021-06-16 04:00] VITALS: BP 110/79
[2021-06-16 05:25] LABS: HEMOGLOBIN 11.5 gm/dL (14.0-18.0); MCH 30.1 pg (26.0-34.0); MCHC 32.8 g/dL (28.0-37.0); MCV 91.8 fL (80.0-100.0); MPV 8.7 fl. (7.2-11.1); NUCLEATED RBCS 0 /100WBC; PLATELET COUNT* 103 thou/uL (150-400); RBC 3.81 mil/uL (4.50-6.00); RDW-CV 16.4 % (10.5-14.5); WBC 5.2 thou/uL (4.0-11.0)
[2021-06-16 05:49] LABS: ALBUMIN 2.9 g/dL (3.4-5.0); CALCIUM 8.3 mg/dL (8.5-10.1); CREATININE 1.6 mg/dL (0.6-1.3); POTASSIUM 3.6 mmol/L (3.5-5.1); TOTAL BILIRUBIN 1.4 mg/dL (<0.1-1.0); TOTAL PROTEIN 5.3 g/dL (6.4-8.2)
[2021-06-16 08:00] VITALS: BP 101/74
[2021-06-16 08:07] LABS: ABSOLUTE EOSINOPHILS 0.2 thou/uL (0.0-0.7); ABSOLUTE LYMPHOCYTES 2.2 thou/uL (0.8-5.3); ABSOLUTE MONOCYTES 0.3 thou/uL (0.0-1.2); ABSOLUTE NEUTROPHILS 2.5 thou/uL (1.6-8.1)
[2021-06-16 08:08] LABS: PLATELET ESTIMATE ADEQUATE
[2021-06-16] MEDS ORDERED: MINOCYCLINE HC100 M2 PO (11:53)
[2021-06-16] MEDS ORDERED: TORSEMIDE20 MG PO (11:54)
[2021-06-16] MEDS ORDERED: SPIRONOLACTONE25 M1 PO (11:55)
[2021-06-16 12:57] VITALS: BP 116/80
[2021-06-16 15:31] VITALS: BP 116/80
[2021-06-16 16:49] VITALS: BP 100/75
[2021-06-16 17:51] VITALS: BP 100/75
== END 2021-06-16 18:30 | disposition home health service (06) | DRG 177 ==
LOC: M.ERS 16:55 → M.2W 19:34 → M.TBA-ER 19:34 → M.2W 21:03
PROVIDERS: Family Medicine; Internal Medicine; Student in an Organized Health Care Education/Training Program; ADMIT Internal Medicine; ATTEND Internal Medicine
PROC: 05HA33Z Insertion of Infusion Device into Left Brachial Vein, Percutaneous Approach (ICD-10-PCS; principal; 2021-06-13)
DX: J15.6 Pneumonia due to other Gram-negative bacteria (principal); N17.0 Acute kidney failure with tubular necrosis; I50.43 Acute on chronic combined systolic (congestive) and diastolic (congestive) heart failure; J96.01 Acute respiratory failure with hypoxia; I13.0 Hypertensive heart and chronic kidney disease with heart failure and stage 1 through stage 4 chronic kidney disease, or unspecified chronic kidney disease; C91.10 Chronic lymphocytic leukemia of B-cell type not having achieved remission; I42.9 Cardiomyopathy, unspecified; E66.9 Obesity, unspecified; E11.621 Type 2 diabetes mellitus with foot ulcer; L97.529 Non-pressure chronic ulcer of other part of left foot with unspecified severity; I48.91 Unspecified atrial fibrillation; Z20.822 Contact with and (suspected) exposure to COVID-19; S80.922A Unspecified superficial injury of left lower leg, initial encounter; S80.921A Unspecified superficial injury of right lower leg, initial encounter; N18.30 Chronic kidney disease, stage 3 unspecified; E11.22 Type 2 diabetes mellitus with diabetic chronic kidney disease; I25.10 Atherosclerotic heart disease of native coronary artery without angina pectoris; R79.1 Abnormal coagulation profile; E11.65 Type 2 diabetes mellitus with hyperglycemia; E11.51 Type 2 diabetes mellitus with diabetic peripheral angiopathy without gangrene; I35.0 Nonrheumatic aortic (valve) stenosis; K74.60 Unspecified cirrhosis of liver; E78.5 Hyperlipidemia, unspecified; F03.90 Unspecified dementia, unspecified severity, without behavioral disturbance, psychotic disturbance, mood disturbance, and anxiety; R79.89 Other specified abnormal findings of blood chemistry; Z95.1 Presence of aortocoronary bypass graft; Z68.28 Body mass index [BMI] 28.0-28.9, adult; I25.2 Old myocardial infarction; Z95.0 Presence of cardiac pacemaker; Z79.899 Other long term (current) drug therapy; Z79.01 Long term (current) use of anticoagulants; Z79.4 Long term (current) use of insulin; Z88.8 Allergy status to other drugs, medicaments and biological substances; Y93.89 Activity, other specified; Y92.89 Other specified places as the place of occurrence of the external cause; Y99.8 Other external cause status